=== PATIENT | male | born 1990 | race Caucasian/White ===

== ENCOUNTER 2020-01-16 22:50 | Emergency (ER) | payer SELFPAY ==
[2020-01-16 22:54] VITALS: BP 134/73; PULSE 95; RESP 22; TEMP 36.7; O2SAT 99; BMI 26.5
--- NOTE | 2020-01-16 22:54 | ED_ITS ---
Entered by Alexia Thomas, acting as scribe for Carla Segal Jan 16, 2020 22:50 HPI - SOB/Dyspnea General: Chief Complaint: Shortness of Breath/Dyspnea Stated Complaint: sob Time Seen by Provider: 01/16/20 22:53 Source: patient Mode of arrival: ambulatory Limitations: no limitations History of Present Illness: HPI Narrative: 29 yo m came to the er for short ness of breath, productive cough and tightness in chest. Onset was today. Pt states that he was seen in urgent care and was diagnosed with bronchitis and was given meds but was unable to get them due to how much they were. Pt states that he does have asthma and he does smoke. MD elicited complaint: shortness of breath and cough (productive ) Pertinent past history: asthma Onset (ago): day(s) (today) Timing: intermittent Severity: mild Exacerbating factors: coughing Relieving factors: nothing Known history of: asthma Associated symptoms: Reports cough; Deny abdominal pain, chest pain, diaphoresis, dizziness, extremity pain, fever(s), nausea, orthopnea, palpitations, polydipsia, syncope or vomiting Treatment prior to arrival: none Related Data: Home oxygen amount: none Review of Systems General: Reports: other (negative unless marked) Const: Denies: fever, chills, body aches, fatigue, malaise or diaphoresis Eyes: Denies: change in vision or blurry vision ENMT: Denies: throat pain, painful swallowing, hoarseness, ear pain, ear discharge, Change in hearing or nasal discharge Card: Denies: chest pain, palpitations, irregular heart rhythm, syncope, pre- syncope, shortness of breath on exertion or shortness of breath when lying down Resp: Reports: shortness of breath and productive cough GI: Denies: abdominal pain, nausea, vomiting, vomiting blood, coffee grounds in vomit, diarrhea, constipation, cramping, blood in stool or black tarry stool : Denies: flank pain, difficulty urinating, painful urination, urinary freq uency, urinary urgency, decreased urine ouput, urinary incontinence or blood in urine Musc: Denies: neck pain, back pain, extremity pain, extremity swelling, joint pain, joint swelling, joint warmth or joint stiffness Skin/Breast: Denies: rash, skin tenderness or yellow skin Neuro: Denies: headache, numbness in extremities, weakness in extremities, changes in sensation, lack of coordination, difficulty walking, dizziness, vertigo or confusion Endo: Denies: excessive thirst, tired all the time, cold intolerance, excessive sweating, flushing or hot flashes Eder/Lymph: Denies: easy bruising, easy bleeding, petechiae or enlarged lymph nodes All/Imm: Denies: hives, throat swelling, tongue swelling, facial swelling or acute wheezing PFSH ED PFSH: Social History Smoking and tobacco status: current every day smoker Alcohol intake: never Physical Exam Const: COMMON NORMALS: no apparent distress, oriented x3, no limitations, healthy appearing and well nourished EXAM LIMITATIONS: no altered mental status GENERAL APPEARANCE: cooperative, well kempt and well developed ORIENTATION/CONSCIOUSNESS: Yes awake HENMT: COMMON NORMALS: normocephalic, head/scalp atraumatic, hearing grossly normal bilaterally, external ears normal, EAC's normal, external nose normal and moist oral mucous membranes HEAD & SCALP: normal to inspection, normocephalic and atraumatic FACE & SINUS: normal facial exam and face symmetric NOSE: external nose normal and nares normal EXTERNAL EAR: Yes external ears normal EXTERNAL AUDITORY CANAL: EAC's normal MOUTH: oral and palatal mucosa normal and tongue normal Eye: COMMON NORMALS: PERRL, EOMs intact bilaterally, conjunctivae normal and no scleral icterus GENERAL EYE: normal appearance of both eyes and normal light reflex CONJUNCTIVA: Yes conjunctivae normal SCLERA: sclerae normal CORNEA: Yes corneas normal PUPIL: Yes PERRL DIRECT OPHTHALMOSCOPY: Yes normal light reflex Neck/C-Spine: COMMON NORMALS: full ROM, no lymphadenopathy, supple, no meningeal signs and no JVD GENERAL: Yes normal visual inspection and Yes trachea midline CERVICAL SPINE: Yes cervical ROM normal Chest: COMMONS NORMALS: inspection of chest normal and palpation of chest normal Resp: COMMON NORMALS: normal respiratory effort, no retractions, no use of accessory muscles and clear to auscultation bilaterally EFFORT & INSPECTION: Yes able to speak in complete sentences AUSCULTATION: clear to auscultation bilaterally and diminished lung sounds Cardio: COMMON NORMALS: no JVD, regular rate, regular rhythm, S1 normal heart sound, S2 normal heart sound, no gallops, no clicks, no murmurs and no rub JUGULAR VENOUS DISTENTION: no JVD RATE: regular rate RHYTHM: regular rhythm HEART SOUNDS: S1 normal and S2 normal GI: COMMON NORMALS: soft to palpation, non-tender, no hepatosplenomegaly and no masses INSPECTION: Yes normal to inspection PALPATION: Yes soft and Yes no hepatosplenomegaly : COMMON NORMALS: Yes no CVA tenderness BLADDER/KIDNEY EXAM: Yes no CVA tenderness Back/Pelvis: COMMON NORMALS: no CVA tenderness, thoracic and lumbar spine normal to inspection, no thoracic nor lumbar tenderness and thoraco-lumbar ROM normal Extremity: COMMON NORMALS: normal to inspection, full ROM, normal capillary refill, no joint enlargement, no clubbing, cyanosis or edema and no calf tenderness Neuro: COMMON NORMALS: oriented x3, CN's II-XII intact bilaterally, moves all extremities, no focal motor deficits and no sensory deficits noted MENINGEAL SIGNS: Yes no meningeal signs Psych: COMMON NORMALS: mental status grossly normal, thought process normal, cooperative, affect normal, speech normal and activity/motor behavior normal APPEARANCE: Yes well kempt SPEECH: Yes normal speech THOUGHT PROCESS: normal thought process Skin: COMMON NORMALS: no rashes or lesions noted, skin turgor normal, no jaundice, no petechiae and no mottling GENERAL SKIN EXAM: no rashes or lesions noted and turgor normal Course Vital Signs: Vital signs: Vital Signs Temperature 98.0 F 01/16/20 22:54 Pulse Rate 94 01/16/20 23:36 Respiratory Rate 16 01/16/20 23:36 Blood Pressure 128/71 01/16/20 23:36 Pulse Oximetry 97 01/16/20 23:36 MDM - SOB/Dyspnea MDM Narrative: Medical decision making narrative: The patient is feeling much better after his breathing treatment. He is feeling better and would like to go home. I will dispense home on albuterol inhaler with him and he is received a dose of steroids here. He agrees to return should his symptoms change or worsen. At this time I believe the patient have bronchitis with bronchospasm. He has a history of asthma but has albuterol, steroids and antibiotics prescribed to him earlier today by the urgent care. I will have him continue to take this. Imaging Data^: CXR: My impression: No acute cardiopulmonary findings. Discharge Plan Discharge Patient Disposition: Home, Self-Care Clinical Impression: Asthma with exacerbation Qualifiers: Asthma severity: mild Asthma persistence: intermittent Qualified Code(s): J45.21 - Mild intermittent asthma with (acute) exacerbation Condition: Stable Prescriptions: No Action No Known Home Medications RF: 0 Discharge Orders: Discharge Order (Routine); Ordered 01/16/20 Ordered By: Calra Segal Referrals: Lucero Jacques DO [Physician] - 1-3 days Discharge Diet: Advance as tolerated Discharge Activity: Increase activity as tolerated Patient Instructions: Acute Bronchitis (ED) Activity Restrictions/Additional Instructions: Please return to the ER immediately for any of the signs or symptoms listed on your discharge instruction sheets, worsening/changing of your symptoms, you are not getting better as quickly as expected, or for ANY other cause or concerns. Discharge Date/Time: 01/16/20 23:37 Coding Level of Care Code ED Network Support Technician for Chg Fwd Exam Comprehensive The documentation recorded by the William nicolas Stephanie Lyn, accurately reflects the service I personally performed and the decisions made by Luzma sun Eli N Jan 16, 2020 22:50
--- NOTE | 2020-01-16 22:56 | XR_ITS ---
WS: [id number] Portable AP upright chest, 01/16/2020 Clinical Data: cough Comparison: None. Findings: No nodules, masses or effusions are seen. The heart is normal. The pulmonary vascularity is not increased. No pneumonia or pneumothorax is seen. XR/XR chest 1V portable [id number] Impression: Negative chest.
[2020-01-16] MEDS: predniSONE 20 mg Tablet 60 MG PO (23:01)
[2020-01-16] MEDS: ipratropium-albuterol 3 mL Neb 9 ML INHALATION (23:21)
[2020-01-16 23:22] VITALS: PULSE 86; RESP 18; O2SAT 96
[2020-01-16 23:28] VITALS: PULSE 89; RESP 18; O2SAT 96
[2020-01-16 23:36] VITALS: BP 128/71; PULSE 94; RESP 16; O2SAT 97
== END 2020-01-16 23:37 | disposition home or self-care (01) ==
PROVIDERS: Emergency Provider Emergency Medicine
DX: J45.21 Mild intermittent asthma with (acute) exacerbation (principal); I10 Essential (primary) hypertension; F17.210 Nicotine dependence, cigarettes, uncomplicated
CPT/HCPCS: 71045; 94640; 99281; 99283; J3535; J7512

== ENCOUNTER 2020-02-14 00:54 | Emergency (ER) | payer SELFPAY ==
[2020-02-14 01:05] VITALS: BP 141/85; PULSE 93; RESP 16; TEMP 36.9; O2SAT 96; BMI 26.4
--- NOTE | 2020-02-14 01:11 | ED_ITS ---
Entered by Alexia Thomas, acting as scribe for Fran Rojas MD Feb 14, 2020 00:54 HPI - SOB/Dyspnea General: Chief Complaint: Shortness of Breath/Dyspnea Stated Complaint: sob Source: patient Mode of arrival: ambulatory Limitations: no limitations History of Present Illness: HPI Narrative: 29 yr old m came to the ED for shortness of breath. Feels like he needs an inhaler treatment. Pt says his shortness of breath started 1 hr before arrival. He states he does not have an inhaler. deneis any fevers. pt is in no distress. denies any worsening or improving factors. MD elicited complaint: shortness of breath (approx 1 hr ) and asthma attack Pertinent past history: asthma Onset (ago): hour(s) (stated it started 1 hr prior to arrival ) Severity: mild Exacerbating factors: nothing Relieving factors: nothing Associated symptoms: Reports no associated symptoms; Deny abdominal pain, chest pain, fever(s), nausea or vomiting Treatment prior to arrival: none Related Data: Home oxygen amount: none Review of Systems General: Reports: other (negative unless marked ) Const: Denies: fever, chills, body aches or change in appetite Eyes: Denies: blurry vision or eye discomfort ENMT: Denies: throat pain or dental pain Card: Denies: chest pain Resp: Reports: shortness of breath (pt has a history of asthma ) GI: Denies: abdominal pain, nausea, vomiting or diarrhea : Denies: painful urination Musc: Denies: neck pain or back pain Skin/Breast: Denies: rash Neuro: Denies: headache Psych: Denies: depression Eder/Lymph: Denies: easy bruising All/Imm: Denies: hives [facility] ED PFSH: Social History Smoking and tobacco status: current every day smoker Alcohol intake: never Physical Exam Const: COMMON NORMALS: no apparent distress, oriented x3 and healthy appearing HENMT: COMMON NORMALS: normocephalic and head/scalp atraumatic HEAD & SCALP: normocephalic and atraumatic Eye: COMMON NORMALS: PERRL and EOMs intact bilaterally PUPIL: Yes PERRL Neck/C-Spine: COMMON NORMALS: full ROM and supple Chest: COMMONS NORMALS: inspection of chest normal and palpation of chest normal Resp: COMMON NORMALS: normal respiratory effort, no retractions, no use of accessory muscles and clear to auscultation bilaterally AUSCULTATION: clear to auscultation bilaterally Cardio: COMMON NORMALS: regular rate, regular rhythm and no murmurs RATE: regular rate RHYTHM: regular rhythm GI: COMMON NORMALS: normal to inspection, nondistended, normoactive bowel sounds, soft to palpation, non-tender and no masses PALPATION: Yes soft Extremity: COMMON NORMALS: normal to inspection and full ROM Neuro: COMMON NORMALS: oriented x3, moves all extremities and no focal motor deficits Psych: COMMON NORMALS: mental status grossly normal, thought process normal and cooperative THOUGHT PROCESS: normal thought process Skin: COMMON NORMALS: no rashes or lesions noted and no wounds GENERAL SKIN EXAM: no rashes or lesions noted Course Vital Signs: Vital signs: Vital Signs Temperature 98.4 F 02/14/20 01:05 Pulse Rate 88 02/14/20 01:39 Respiratory Rate 18 02/14/20 01:34 Blood Pressure 141/85 02/14/20 01:05 Pulse Oximetry 97 02/14/20 01:39 MDM - SOB/Dyspnea MDM Narrative: Medical decision making narrative: Patient presents here with asthma and does not have inhaler at this time. Patient is in minimal distress here and feels improved after breathing treatment. Patient given Decadron as well. Will prescribe albuterol inhaler for home and patient is stable for discharge at this time. Discharge Plan Discharge Patient Disposition: Home, Self-Care Clinical Impression: Asthma with exacerbation Qualifiers: Asthma severity: mild Asthma persistence: unspecified Qualified Code(s): J45.901 - Unspecified asthma with (acute) exacerbation Condition: Stable Prescriptions: New albuterol sulfate 90 mcg/actuation HFA aerosol inhaler 2 inh INHALATION Q6H PRN (Reason: shortness of breath or wheezing) Qty: 8 RF: 0 Discharge Orders: Discharge Order (Routine); Ordered 02/14/20 Ordered By: Fran Rojas Discharge Diet: Advance as tolerated Discharge Activity: Resume usual activity Patient Instructions: Asthma (ED) Coding Level of Care Code ED Lining Baster for g Fwd Exam Comprehensive The documentation recorded by the William nicolas Stephanie Lyn, accurately reflects the service I personally performed and the decisions made by me, Fran Rojas MD Feb 14, 2020 00:54
[2020-02-14] MEDS: dexamethasone 10 mg/mL INJ IM (01:20)
[2020-02-14 01:34] VITALS: PULSE 89; RESP 18; O2SAT 96
[2020-02-14] MEDS: ipratropium-albuterol 3 mL Neb INHALATION (01:34)
[2020-02-14 01:39] VITALS: PULSE 88; O2SAT 97
== END 2020-02-14 01:24 | disposition home or self-care (01) ==
PROVIDERS: Emergency Provider Emergency Medicine
DX: J45.901 Unspecified asthma with (acute) exacerbation (principal); F17.200 Nicotine dependence, unspecified, uncomplicated
CPT/HCPCS: 12345; 94640; 96372; 99281; 99283; J1100

== ENCOUNTER 2020-02-19 18:49 | Emergency (ER) | payer SELFPAY ==
[2020-02-19 18:54] VITALS: BP 142/91; PULSE 77; RESP 18; TEMP 37.1; O2SAT 98; BMI 27.3
--- NOTE | 2020-02-19 19:10 | W.ED.GENADLT ---
HPI - General Adult General: Chief complaint: General Medical Stated complaint: Left arm/hand pain Time Seen by Provider: 02/19/20 19:02 History of Present Illness: HPI narrative: Patient has left hand pain that is had for year and a half he is out of his Neurontin does not have money to get it comes here today because he sent by urgent care instead to come here to get medication filled. Desiring 600 Neurontin. complaint: Left hand pain Onset (ago): year(s) Location: left and upper extremity Severity scale (1-10): 7 Quality: aching Pain Consistency: constant Associated symptoms: Reports no associated symptoms; Deny chest pain, dyspnea, headache(s), nausea, rash or vomiting Review of Systems Const: Denies: fever, chills or body aches Eyes: Denies: change in vision or blurry vision ENMT: Denies: throat pain or nasal congestion Card: Denies: chest pain or shortness of breath on exertion Resp: Denies: shortness of breath, productive cough or non-productive cough GI: Denies: abdominal pain, nausea or vomiting : Denies: difficulty urinating Musc: Denies: extremity pain Skin/Breast: Denies: rash Neuro: Reports: other (Left hand pain between the thumb and forefinger.); Denies: headache Psych: Denies: anxiety or depression Eder/Lymph: Denies: easy bruising PFSH ED PFSH: Social History Smoking and tobacco status: current every day smoker Alcohol intake: never Physical Exam Const: COMMON NORMALS: no apparent distress, average body habitus and oriented x3 HENMT: COMMON NORMALS: normocephalic HEAD & SCALP: normal to inspection and normocephalic FACE & SINUS: normal facial exam Eye: COMMON NORMALS: conjunctivae normal GENERAL EYE: normal appearance of both eyes CONJUNCTIVA: Yes conjunctivae normal Neck/C-Spine: COMMON NORMALS: no JVD Chest: COMMONS NORMALS: inspection of chest normal Resp: COMMON NORMALS: normal respiratory effort and clear to auscultation bilaterally AUSCULTATION: clear to auscultation bilaterally Cardio: COMMON NORMALS: no JVD, regular rate and regular rhythm RATE: regular rate RHYTHM: regular rhythm GI: COMMON NORMALS: normal to inspection, nondistended, normoactive bowel sounds Extremity: COMMON NORMALS: normal to inspection and full ROM LEFT UPPER EXTREMITY: Yes hand & digits (Left hand appears normal.) Neuro: COMMON NORMALS: oriented x3 Course Vital Signs: Vital signs: Vital Signs Temperature 98.7 F 02/19/20 18:54 Pulse Rate 77 02/19/20 18:54 Respiratory Rate 18 02/19/20 18:54 Blood Pressure 142/91 02/19/20 18:54 Pulse Oximetry 98 02/19/20 18:54 Discharge Plan Discharge Prescriptions: No Action albuterol sulfate 90 mcg/actuation HFA aerosol inhaler 2 inh INHALATION Q6H PRN (Reason: shortness of breath or wheezing) Qty: 8 RF: 0 Coding Level of Care Code ED Hadoop Administrator for Chg Tejas
[2020-02-19] MEDS: gabapentin 300 mg Capsule 600 MG PO (19:16)
[2020-02-19 19:40] VITALS: BP 124/87; PULSE 80; RESP 16; O2SAT 97
== END 2020-02-19 19:41 | disposition home or self-care (01) ==
PROVIDERS: Emergency Provider Nurse Practitioner Family
DX: M79.642 Pain in left hand (principal); F17.200 Nicotine dependence, unspecified, uncomplicated
CPT/HCPCS: 12345; 99281; 99283

== ENCOUNTER 2020-05-22 16:09 | Emergency (ER) | payer SELFPAY ==
[2020-05-22 16:19] VITALS: BP 136/78; PULSE 86; RESP 15; TEMP 36.9; O2SAT 95; BMI 28.7
== END 2020-05-22 17:31 | disposition left against medical advice (07) ==
PROVIDERS: Emergency Provider Family Medicine
DX: Z53.21 Procedure and treatment not carried out due to patient leaving prior to being seen by health care provider (principal)
CPT/HCPCS: 99281

== ENCOUNTER 2020-05-31 18:37 | Emergency (ER) | payer SELFPAY ==
[2020-05-31 18:41] VITALS: BP 120/76; PULSE 105; RESP 14; TEMP 36.9; O2SAT 96; BMI 30.2
--- NOTE | 2020-05-31 19:35 | XRR_ITS ---
PROCEDURE INFORMATION: Exam: XR Chest, 2 Views Exam date and time: 05/31/2020 8:13 PM Age: 29 years old Clinical indication: Dyspnea TECHNIQUE: Imaging protocol: XR of the chest Views: 2 views. COMPARISON: CR XR chest 1V portable [id number] 01/16/2020 11:03 PM FINDINGS: Lungs: Unremarkable. No consolidation. Pleural space: Unremarkable. No pleural effusion. No pneumothorax. Heart/Mediastinum: Unremarkable. No cardiomegaly. Bones/joints: Unremarkable. XR/XR chest 2V* [id number] IMPRESSION: No acute findings.
--- NOTE | 2020-05-31 20:08 | W.ED.SOB ---
HPI - SOB/Dyspnea General: Chief Complaint: Shortness of Breath/Dyspnea Stated Complaint: sob Time Seen by Provider: 05/31/20 20:04 History of Present Illness: HPI Narrative: Patient is a 29-year-old male who comes to the ED with shortness of breath and wheezing. Patient has a past medical history of asthma and has been out of his albuterol inhaler for approximately 6 days. Patient says wheezing and symptoms started about a week ago. He would like to get a refill on his albuterol inhaler. Denies fever, cough, chest pain, nausea/vomiting, bladder or bowel symptoms. Associated symptoms: Deny abdominal pain, chest pain, fever(s), nausea, orthopnea, palpitations or vomiting Review of Systems Const: Denies: fever(s), chills or fatigue Eyes: Denies: change in vision or eye discomfort ENMT: Denies: throat pain, odynophagia, nasal discharge or nasal congestion Card: Denies: chest pain, palpitations, edema, swelling of feet/ankles, dyspnea on exertion or orthopnea Resp: Reports: dyspnea; Denies: productive cough or non-productive cough GI: Denies: abdominal pain, nausea, vomiting, diarrhea, constipation or hematochezia : Denies: flank pain, difficulty urinating, dysuria or hematuria Musc: Denies: neck pain, back pain or extremity swelling Skin/Breast: Denies: rash or new lesions Neuro: Denies: headache(s), numbness in extremities or weakness in extremities PFSH ED PFSH: Social History Smoking and tobacco status: current every day smoker Alcohol intake: never Physical Exam Const: COMMON NORMALS: patient oriented x3, healthy appearing and alert GENERAL APPEARANCE: cooperative and comfortable HENMT: COMMON NORMALS: normocephalic HEAD & SCALP: normocephalic MOUTH: Normal oral and palatal mucosa present THROAT: posterior oropharynx normal and uvula midline Eye: COMMON NORMALS: Equal, round and reactive pupils present PUPIL: Yes Equal, round and reactive pupils present Neck/C-Spine: COMMON NORMALS: supple GENERAL: Yes normal visual inspection Resp: COMMON NORMALS: normal respiratory effort, No retractions and No use of accessory muscles AUSCULTATION: wheezes expiratory wheezes (Throughout the lungs bilaterally.) Cardio: COMMON NORMALS: regular rate, regular rhythm, S1 normal heart sound present, S2 normal heart sound present, No gallops present (Cardio), No clicks present (Cardio), No murmurs present (Cardio) and Peripheral pulses 2+ throughout RATE: regular rate RHYTHM: regular rhythm HEART SOUNDS: S1 normal heart sound present and S2 normal heart sound present PERIPHERAL PULSES: Peripheral pulses 2+ throughout GI: COMMON NORMALS: Normal to inspection, nondistended, normoactive bowel sounds present, Soft to palpation, non-tender and no masses PALPATION: Yes Soft to palpation : COMMON NORMALS: Yes no CVA tenderness BLADDER/KIDNEY EXAM: Yes no CVA tenderness Back/Pelvis: COMMON NORMALS: no CVA tenderness Extremity: COMMON NORMALS: normal to inspection and no pedal edema Neuro: COMMON NORMALS: patient oriented x3 and moves all extremities SENSORIUM/ORIENTATION: Yes alert Skin: COMMON NORMALS: no rashes or lesions noted GENERAL SKIN EXAM: no rashes or lesions noted and dry skin Course Reevaluation(s): Reevaluation #1: After patient received DuoNeb treatment I listen to the lungs again and no wheezing upon auscultation. Patient stated he felt better to and was able to breathe better. Vital Signs: Vital signs: Vital Signs Temperature 98.4 F 05/31/20 18:41 Pulse Rate 67 05/31/20 21:28 Respiratory Rate 16 05/31/20 21:33 Blood Pressure 120/76 05/31/20 18:41 Pulse Oximetry 98 05/31/20 21:28 MDM - SOB/Dyspnea MDM Narrative: Medical decision making narrative: Patient is a 29-year-old male who comes to the ED with shortness of breath and wheezing. He has a past medical history of asthma. He started having shortness of breath and wheezing approximately a week ago but ran out of his albuterol inhaler. He came to the ED to get a breathing treatment and new prescription for an albuterol inhaler. Expiratory wheezing heard upon auscultation of lungs. Chest x-ray was performed showed no acute findings. Patient was given a dose of Solu-Medrol IM and a DuoNeb breathing treatment. Wheezing improved and he was discharged with a prescription for albuterol inhaler. Patient will follow-up with primary care doctor in 7 to 10 days for reevaluation. He can return to ED for any worsening symptoms. Patient understood and agreed with plan. Imaging Data^: CXR: Attestation: I personally reviewed and interpreted this imaging study as follows: My impression: No acute findings in chest. Pending final radiology report. Discharge Plan Discharge Patient Disposition: Home, Self-Care Clinical Impression: Asthma exacerbation, mild Condition: Stable Prescriptions: New albuterol sulfate 90 mcg/actuation HFA aerosol inhaler 2 inh INHALATION Q6H PRN (Reason: shortness of breath or wheezing) Qty: 8.5 RF: 0 No Action albuterol sulfate 90 mcg/actuation HFA aerosol inhaler 2 inh INHALATION Q6H PRN (Reason: shortness of breath or wheezing) Qty: 8 RF: 0 Discharge Orders: Discharge Order (Routine); Ordered 05/31/20 Ordered By: Dakotah Laguerre Discharge Diet: Regular Discharge Activity: Resume usual activity Patient Instructions: Asthma - Adult Activity Restrictions/Additional Instructions: Follow-up with medical provider as directed in 7-10 days. Take medications as prescribed. Return to the ER or your medical provider if condition worsens. Please read and understand discharge instructions. If any questions, please ask. Discharge Date/Time: 05/31/20 21:34 Coding Level of Care Code ED Data Analytics Chief Scientist for Kieran Fwd Exam Comprehensive
[2020-05-31] MEDS: ipratropium-albuterol 3 mL Neb INHALATION (21:27)
[2020-05-31 21:28] VITALS: PULSE 67; RESP 16; O2SAT 98
[2020-05-31 21:33] VITALS: RESP 16
== END 2020-05-31 21:34 | disposition home or self-care (01) ==
PROVIDERS: Emergency Provider Physician Assistant
DX: J45.901 Unspecified asthma with (acute) exacerbation (principal); F17.210 Nicotine dependence, cigarettes, uncomplicated
CPT/HCPCS: 12345; 71046; 94640; 99281; 99283; J2930

== ENCOUNTER → 2020-06-26 10:16 | Outpatient (BNVA) | payer SELFPAY | PROVIDERS: Visit Provider Emergency Medicine | DX: M79.646 Pain in unspecified finger(s) (principal) | CPT/HCPCS: 73130 ==

== ENCOUNTER 2023-05-27 11:55 | Emergency (ER) | payer SELFPAY ==
[2023-05-27 12:04] VITALS: BP 136/86; PULSE 85; RESP 18; TEMP 36.7; O2SAT 97; BMI 29.2
--- NOTE | 2023-05-27 12:35 | ED_ITS ---
HPI - Dental/Oral General: Chief complaint: Dental/Oral Stated complaint: dental pain Time Seen by Provider: 05/27/23 12:18 Source: patient Mode of arrival: ambulatory Limitations: no limitations History of Present Illness: Patient is a 32-year-old male who presents to ED today with complaint of pain s urrounding a left lower molar. Patient states he has had discomfort in the tooth for several days but states yesterday he began noticing some mild swelling to the left side of his face. He has not sought any form of dental evaluation. Been trying [id number] Tylenol without relief. He is not having any trouble speaking, swallowing, controlling saliva. No fevers. MD Complaint: tooth pain Teeth map: 1. Onset (ago): day(s) Duration: constant Severity: severe Relieving factors: nothing Exacerbating factors: nothing Context: poor dental care Associated symptoms: Reports ear or mastoid pain; Denies fever(s) Treatment prior to arrival: oral analgesic Review of Systems Const: Denies: fever(s), chills, body aches, fatigue or malaise ENMT: Reports: dental pain and ear or mastoid pain; Denies: ear discharge, change in hearing, tinnitus or disequilibrium Card: Denies: chest pain Resp: Denies: dyspnea GI: Denies: nausea or vomiting Musc: Denies: neck pain Neuro: Denies: headache(s) PFS ED PFSH: Social History Smoking and tobacco status: current every day smoker Alcohol intake: never Substance/Drug Use: never Physical Exam Const: COMMON NORMALS: no acute distress, average body habitus, patient oriented x3, no limitations, healthy appearing, alert and well nourished HENMT: COMMON NORMALS: normocephalic, atraumatic, hearing grossly normal bilaterally, external ears normal, EAC's normal and TM's normal bilaterally HEAD & SCALP: normal to inspection, normocephalic and atraumatic FACE & SINUS: normal facial exam and sinuses nontender; no edema EXTERNAL EAR: Yes external ears normal EXTERNAL AUDITORY CANAL: EAC's normal TYMPANIC MEMBRANE: TM's normal bilaterally MOUTH: Normal oral and palatal mucosa present, lip normal, tongue normal and other (floor of mouth is soft/non-elevated) TEETH & GINGIVA IMAGES: 1. cracked/fractured L lower molar; some mild surrounding inflammation/no abscess THROAT: posterior oropharynx normal, tonsils normal and uvula midline Eye: GENERAL EYE: appearance normal, both eyes and all related structures Neck/C-Spine: COMMON NORMALS: full ROM and no lymphadenopathy GENERAL: Yes normal visual inspection, No anterior neck swelling and No submandibular swelling Resp: COMMON NORMALS: normal respiratory effort Cardio: COMMON NORMALS: regular rate and regular rhythm RATE: regular rate RHYTHM: regular rhythm Neuro: COMMON NORMALS: patient oriented x3 and CN's II-XII intact bilaterally SENSORIUM/ORIENTATION: Yes alert Course Vital Signs: Vital signs: Vital Signs Temperature 98.0 F 05/27/23 12:04 Pulse Rate 85 05/27/23 12:49 Respiratory Rate 18 05/27/23 12:49 Blood Pressure 136/86 05/27/23 12:49 Pulse Oximetry 97 05/27/23 12:49 Oxygen Delivery Me thod Room Air 05/27/23 12:04 MDM - Dental/Oral Medical Decision Making Patient will be placed on antibiotics and given a small amount of pain medications. Dental resources given to patient. Recommend prompt dental follow-up. Return ED precautions given. Discharge Plan Discharge Patient Disposition: Home Clinical Impression: Toothache, Fracture of tooth Condition: Stable Prescriptions: New penicillin V potassium 500 mg tablet 500 mg PO Q8H 7 Days Qty: 21 0RF tramadol 50 mg tablet 50 mg PO Q6H PRN (Reason: pain) Qty: 10 0RF No Action albuterol sulfate 90 mcg/actuation HFA aerosol inhaler 2 inh INHALATION Q6H PRN (Reason: shortness of breath or wheezing) Qty: 8.5 0RF Discharge Orders: Discharge ED (Routine); Ordered 05/27/23 Ordered By: Marta Becerra Patient Instructions: Toothache (ED) Coding Level of Care Code ED Dynamite Packing Machine Feeder for Kieran Lazaro
[2023-05-27 12:49] VITALS: BP 136/86; PULSE 85; RESP 18; O2SAT 97
== END 2023-05-27 12:50 | disposition home or self-care (01) ==
PROVIDERS: Emergency Provider Physician Assistant
DX: S02.5XXA Fracture of tooth (traumatic), initial encounter for closed fracture (principal); X58.XXXA Exposure to other specified factors, initial encounter; F17.210 Nicotine dependence, cigarettes, uncomplicated
CPT/HCPCS: 99283

== ENCOUNTER 2023-07-25 01:03 | Emergency (ER) | payer SELFPAY ==
[2023-07-25 01:15] VITALS: BP 116/88; PULSE 97; RESP 18; TEMP 36.2; O2SAT 100; BMI 27.8
[2023-07-25 01:20] VITALS: BP 116/88; PULSE 97; RESP 20; O2SAT 96
--- NOTE | 2023-07-25 01:38 | W.ED.DENTAL ---
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 Onset of symptoms approximately 1 month ago. Was seen here in the emergency department and discharged on penicillin and tramadol. Patient states he was unable to fill the prescription Patient has not followed up with a dentist due to finances. Patient has not established primary care due to finances. Patient has swelling to right cheek, lower jaw Patient denies routine medical history. Did have a history of asthma possibly and has an albuterol inhaler. Patient does use tobacco products daily. Associated symptoms: Denies ear or mastoid pain, fever(s) or odynophagia Review of Systems General: Reports: 10 or more systems reviewed and unremarkable except in HPI and below Const: Denies: fever(s), chills, change in appetite, change in weight, fatigue or malaise Eyes: Denies: change in vision, eye discomfort, eye discharge or eye redness ENMT: Denies: throat pain, enlarged tonsils, odynophagia, hoarseness, ear or mastoid pain, ear discharge, change in hearing, tinnitus, nasal discharge, nasal congestion, post nasal drip or sinus pain Card: Denies: chest pain, palpitations, irregular heart rhythm, edema, dyspnea on exertion, orthopnea or leg pain with exertion Resp: Denies: dyspnea, productive cough, non-productive cough, wheezing, stridor or chest congestion GI: Denies: abdominal pain, nausea, vomiting, dysphagia, diarrhea, constipation, bloating, GI cramping or hematochezia : Denies: flank pain, dysuria, urinary frequency, urinary urgency, urinary hesitancy, oliguria or hematuria Musc: Denies: neck pain, back pain, extremity pain, joint pain, joint swelling, joint redness, joint warmth or muscle weakness Skin/Breast: Denies: rash, pruritus, erythema, photosensitivity or new lesions Neuro: Denies: headache(s), numbness in extremities, weakness in extremities, sensory changes, lack of coordination, difficulty walking, frequent falls, dizziness, confusion, Slurred speech present, difficulty communicating thoughts, seizure-like activity or involuntary movements Endo: Denies: polyuria, polydipsia or tired all the time Eder/Lymph: Denies: easy bruising or easy bleeding PFSH ED PFSH: Social History Smoking and tobacco status: current every day smoker Alcohol intake: never Substance/Drug Use: never Physical Exam Const: COMMON NORMALS: no acute distress, patient oriented x3 and alert GENERAL APPEARANCE: cooperative ORIENTATION/CONSCIOUSNESS: Yes awake, Yes oriented to person, Yes oriented to place and Yes oriented to time HENMT: COMMON NORMALS: normocephalic and atraumatic HEAD & SCALP: normocephalic and atraumatic FACE & SINUS: normal facial exam MOUTH: Normal oral and palatal mucosa present THROAT: posterior oropharynx normal Eye: COMMON NORMALS: Equal, round and reactive pupils present, EOMs intact bilaterally, conjunctivae normal and no scleral icterus GENERAL EYE: appearance normal, both eyes and all related structures ALIGNMENT: Yes alignment normal PERIORBITAL: periorbital findings normal CONJUNCTIVA: Yes conjunctivae normal PUPIL: Yes Equal, round and reactive pupils present Neck/C-Spine: COMMON NORMALS: full ROM GENERAL: Yes normal visual inspection Lymph: LYMPHATIC: no lymphadenopathy noted Extremity: COMMON NORMALS: normal to inspection GENERAL: Yes normal exam except as noted Neuro: COMMON NORMALS: patient oriented x3 SENSORIUM/ORIENTATION: Yes alert, Yes oriented to person, Yes oriented to place and Yes oriented to time CRANIAL NERVES: Yes CN normal except as noted Psych: COMMON NORMALS: mental status grossly normal, Normal thought process present, cooperative, activity/motor behavior normal, denies homicidal ideation and denies suicidal ideation THOUGHT PROCESS: Normal thought process present Skin: COMMON NORMALS: no rashes or lesions noted, no wounds and turgor normal GENERAL SKIN EXAM: no rashes or lesions noted and turgor normal Course Vital Signs: Vital signs: Vital Signs Temperature 97.1 F L 07/25/23 01:15 Pulse Rate 97 07/25/23 01:20 Respiratory Rate 20 H 07/25/23 01:20 Blood Pressure 116/88 07/25/23 01:20 Pulse Oximetry 96 07/25/23 01:20 Oxygen Delivery Me thod Room Air 07/25/23 01:20 MDM - Dental/Oral Medical Decision Making Patient was treated here in the emergency department for dental abscess. There appears to be a drainable abscess however patient does not desire I&D. Patient is going to be treated with penicillin VK here as well as Toradol 60 mg IM. Patient needs to download [facility] to get his prescriptions at a discounted rate. I checked on [facility] and he could pay as low as $5.22 for the prescription Discharge Plan Discharge Patient Disposition: Home Clinical Impression: Dental caries, Dental abscess Condition: Stable Prescriptions: New penicillin V potassium 500 mg tablet 500 mg PO QID 10 Days Qty: 40 0RF No Action albuterol sulfate 90 mcg/actuation HFA aerosol inhaler 2 inh INHALATION Q6H PRN (Reason: shortness of breath or wheezing) Qty: 8.5 0RF tramadol 50 mg tablet 50 mg PO Q6H PRN (Reason: pain) Qty: 10 0RF Discharge Orders: Discharge ED (Routine); Ordered 07/25/23 Ordered By: Joann Pineda Discharge Diet: Advance as tolerated Discharge Activity: Resume usual activity Patient Instructions: Dental Caries (Cavities), Dental Abscess (ED), Pain Management Activity Restrictions/Additional Instructions: Need to go to [facility] We will sign up for discounted medication/prescription rates. This can be used for your , your children, and costs you nothing. Take your antibiotic as prescribed Quit using tobacco products Follow-up with a dentist Coding Level of Care Code ED First Press 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
[2023-07-25] MEDS: ketorolac 10 mg Tablet PO (01:50)
[2023-07-25] MEDS: penicillin v potassium 250 mg Tablet 500 MG PO (01:51)
== END 2023-07-25 02:04 | disposition home or self-care (01) ==
PROVIDERS: Emergency Provider Nurse Practitioner
DX: K02.9 Dental caries, unspecified (principal); K04.7 Periapical abscess without sinus; F17.210 Nicotine dependence, cigarettes, uncomplicated
CPT/HCPCS: 99283

== ENCOUNTER 2024-02-10 22:27 | Inpatient (IN) | payer SELFPAY ==
[2024-02-10 22:32] VITALS: BP 131/77; PULSE 96; RESP 18; TEMP 36.6; O2SAT 98; BMI 31.5
--- NOTE | 2024-02-10 22:50 | ECG_ITS ---
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 Measurements Intervals [place] Rate: 92 P: 38 [place]: 151 QRS: 68 QRSD: 110 T: 22 QT: 369 QTc: 456 Interpretive Statements SINUS RHYTHM No previous ECG available for comparison Electronically Signed On 02-11-2024 7:52:08 CDT by Clay Boyce M.D. [email or web address]
[2024-02-10 23:17] LABS: Basophils % 0.5 %; Eosinophils # 0.2 10^3/uL (0.0-0.8); Eosinophils % 2.4 %; Hematocrit 47.5 % (37-53); Lymphocytes # 3.2 10^3/uL (0.8-4.8); Mean Corpuscular HGB Conc 33.1 g/dL (30-55); Mean Corpuscular Hemoglobin 31.4 pg (27-33); Mean Platelet Volume 10.9 fL (7.4-10.4); Monocytes # 0.8 10^3/uL (0.2-0.9); Monocytes % 10.6 %; Neutrophils # 3.21 10^3/uL (1.8-7.7); Nucleated Red Blood Cells % 0 %; Platelet Count 230 10^3/cmm (157-399); Red Cell Distribution Width 15.4 % (12.1-15.1); White Blood Count 7.47 10^3/uL (3.29-11.43)
[2024-02-10 23:25] LABS: Add Urine Microscopic? NO; Charge for UA Resulting for Rev
[2024-02-10 23:28] LABS: Bilirubin Urine Neg (Negative); Blood Urine Neg (Negative); Glucose Urine UA Norm (Normal); Ketones Urine Negative (Negative); Leukocyte Esterase Urine Negative (Negative); Nitrate Urine Negative (Negative); Protein Urine Neg (Negative); Specific Gravity, Urine 1.005 (1.005-1.030); Urine Appearance Clear (CLEAR); Urine Color Light yellow (Yellow); Urobilinogen Urine Neg (Negative); pH Urine 6 (5-7)
[2024-02-10 23:35] LABS: Amphetamines Screen Urine Negative (Negative); Barbiturates Screen Urine Negative (Negative); Benzodiazepines Screen Urine Negative (Negative); Cocaine Screen Urine Negative (Negative); Opiate Screen Urine Negative (Negative); PCP Screen Urine Negative (Negative); THC Screen Urine Negative (Negative)
[2024-02-10 23:36] LABS: Alanine Aminotransferase 145 U/L (0-41); Albumin Level 4.2 g/dL (3.5-5.2); Alcohol Level 264 mg/dL (0-10); Alkaline Phosphatase 148 U/L (40-130); Aspartate Amino Transferase 220 U/L (0-40); Blood Urea Nitrogen 4 mg/dL (6-20); Calcium 9.3 mg/dL (8.5-10.5); Carbon Dioxide 26 mmol/L (22-29); Chloride 101 mmol/L (98-107); Creatinine Clr Calc Pharmacy 158.4209; Globulin 3.9 g/dL (1.3-4.6); Glomerular Filtration Rate 112.8 mL/min (90-130); Glucose 113 mg/dL (65-115); Osmolality Calculated 290 mOsm/kg (285-295); Sodium 141 mmol/L (136-145); Total Bilirubin 0.5 mg/dL (0.15-1.2); Total Protein 8.1 g/dL (6.6-8.7)
[2024-02-10 23:39] LABS: Acetaminophen < 5.0 ug/mL (10-30); Salicylate < 0.3 mg/dL (3-10)
--- NOTE | 2024-02-11 01:38 | ED.C_ITS ---
HPI - Psych 2 General: Chief Complaint: Psychiatric Symptoms Stated Complaint: MHE, depression Time Seen by Provider: 02/10/24 22:42 History of Present Illness: 33-year-old male presents emergency depa rtment with statements that he feels like he is having suicidal thoughts. He states he has been depressed for a very long time. He states that he has previously been in longterm and was released 3 years ago and since that time he has been depressed as he states that his mother and grandmother have both recently . He states he drank approximately 8-10 beers tonight because of his depression. He states he is had suicidal thoughts for the previous 1 year but they became much more prominent this evening although he states he does not have a plan to act on his suicidal ideation. Associated symptoms: Reports depression and suicidal ideation; Deny auditory hallucinations or homicidal ideation Review of Systems 2 General: Reports: 10 or more systems reviewed and unremarkable except in HPI and below Psych: Reports: anxiety, depression, hopelessness, loss of interest and suicidal ideation; Denies: auditory hallucinations, tactile hallucinations or homicidal ideation [facility] ED 2 PFSH: Social History Smoking and tobacco/nicotine status: current every day tobacco/nicotine user Alcohol intake: never Substance/Drug Use: never Physical Exam 2 Narrative: EXAM NARRATIVE: Constitutional: the patient appears well nourished and of normal development. Vital signs as documented. No acute distress at present. Alert and oriented-to person, place, time and situation. Head, eyes, ears, nose, mouth, throat: Normocephalic, atraumatic. Pupils-equal, round, reactive to light. No scleral icterus. Normal-appearing external ears. Normal appearing nasal turbinates, no drainage. No obvious oral lesions, posterior oropharynx without erythema or exudates. Neck: Supple, trachea is midline, no lymphadenopathy, no jugular venous distension, thyromegaly, or carotid bruits. Carotid upstrokes are brisk bilaterally. Lungs: clear to auscultation to all lung miller. Symmetrical rise and fall of chest, no obvious signs of increased work of breathing at present. Cardiac: Regular rate and rhythm, positive S1, S2. No murmurs, rubs or gallops that I can appreciate Abdomen: Soft, non-tender to palpation, normal active bowel sounds to all quadrants. No palpable masses, no organomegaly and abdominal bruits. Extremities: 2+ pulses in the upper extremities that are equal bilaterally, 2+ pulses in the lower extremities that are equal bilaterally. Non-edematous. Moves all extremities well, sensation to all extremities are noted. Skin: Warm, dry, intact. Psych: Depressed, tearful, withdrawal, poor eye contact. Course 2 Vital Signs: Vital signs: Vital Signs Temperature 97.9 F 02/10/24 22:32 Pulse Rate 96 02/10/24 22:32 Respiratory Rate 18 02/10/24 22:32 Blood Pressure 131/77 02/10/24 22:32 Pulse Oximetry 98 02/10/24 22:32 Oxygen Delivery Me thod Room Air 02/10/24 22:32 MDM - Psych Medical Decision Making Physical exam completed I will obtain laboratory evaluation for psychiatric medical clearance and also twelve-lead EKG. I have contacted Dr. Sears and requested admission and he is excepted the patient to the neuropsychiatric unit. Medical Records I reviewed the patient's medical records. Lab Data I reviewed the patient's lab results. 02/10/24 23:08 02/10/24 23:08 Laboratory Results WBC 7.47 10^3/uL (3.29-11.43) 02/10/24 23:08 RBC 5.00 10^6/uL (3.85-5.65) 02/10/24 23:08 Hgb 15.70 g/dL (11.27-16.99) 02/10/24 23:08 Hct 47.5 % (37-53) 02/10/24 23:08 MCV 95.0 fl (82-101) 02/10/24 23:08 MCH 31.4 pg (27-33) 02/10/24 23:08 MCHC 33.1 g/dL (30-55) 02/10/24 23:08 RDW 15.4 % (12.1-15.1) H 02/10/24 23:08 Plt Count 230 10^3/cmm (157-399) 02/10/24 23:08 MPV 10.9 fL (7.4-10.4) H 02/10/24 23:08 Neut % (Auto) 43.0 % 02/10/24 23:08 Lymph % (Auto) 43.0 % 02/10/24 23:08 [place] % (Auto) 10.6 % 02/10/24 23:08 Eos % (Auto) 2.4 % 02/10/24 23:08 Baso % (Auto) 0.5 % 02/10/24 23:08 Neut # (Auto) 3.21 10^3/uL (1.8-7.7) 02/10/24 23:08 Lymph # (Auto) 3.2 10^3/uL (0.8-4.8) 02/10/24 23:08 [place] # (Auto) 0.8 10^3/uL (0.2-0.9) 02/10/24 23:08 Eos # (Auto) 0.2 10^3/uL (0.0-0.8) 02/10/24 23:08 Baso # (Auto) 0.0 10^3/uL (0.0-0.1) 02/10/24 23:08 Nucleated RBC % (auto) 0 % 02/10/24 23:08 Nucleated RBCs # 0.0 /100WBC 02/10/24 23:08 Sodium 141 mmol/L (136-145) 02/10/24 23:08 Potassium 4.0 mmol/L (3.5-5.1) 02/10/24 23:08 Chloride 101 mmol/L (98-107) 02/10/24 23:08 Carbon Dioxide 26 mmol/L (22-29) 02/10/24 23:08 Anion Gap 18.0 (5-19) 02/10/24 23:08 BUN 4 mg/dL (6-20) L 02/10/24 23:08 Creatinine 0.8 mg/dL (0.7-1.2) 02/10/24 23:08 GFR Calculation 112.8 mL/min (90-130) 02/10/24 23:08 Glucose 113 mg/dL (65-115) 02/10/24 23:08 Calculated Osmolality 290 mOsm/kg (285-295) 02/10/24 23:08 Calcium 9.3 mg/dL (8.5-10.5) 02/10/24 23:08 Total Bilirubin 0.5 mg/dL (0.15-1.2) 02/10/24 23:08 AST 220 U/L (0-40) H 02/10/24 23:08 ALT 145 U/L (0-41) H 02/10/24 23:08 Alkaline Phosphatase 148 U/L (40-130) H 02/10/24 23:08 Total Protein 8.1 g/dL (6.6-8.7) 02/10/24 23:08 Albumin 4.2 g/dL (3.5-5.2) 02/10/24 23:08 Globulin 3.9 g/dL (1.3-4.6) 02/10/24 23:08 Urine Color Light yellow (Yellow) 02/10/24 23:14 Urine Appearance Clear (CLEAR) 02/10/24 23:14 Urine pH 6 (5-7) 02/10/24 23:14 Ur Specific [place] 1.005 (1.005-1.030) 02/10/24 23:14 Urine Protein Neg (Negative) 02/10/24 23:14 Urine Glucose (UA) Norm (Normal) 02/10/24 23:14 Urine Ketones Negative (Negative) 02/10/24 23:14 Urine Blood Neg (Negative) 02/10/24 23:14 Urine Nitrate Negative (Negative) 02/10/24 23:14 Urine Bilirubin Neg (Negative) 02/10/24 23:14 Urine Urobilinogen Neg mg/dL (Negative) 02/10/24 23:14 Ur Leukocyte Esterase Negative (Negative) 02/10/24 23:14 Salicylates < 0.3 mg/dL (3-10) L 02/10/24 23:08 Urine Opiates Screen Negative ng/mL (Negative) 02/10/24 23:14 Acetaminophen < 5.0 ug/mL (10-30) L 02/10/24 23:08 Ur Barbiturates Screen Negative ng/mL (Negative) 02/10/24 23:14 Ur Phencyclidine Scrn Negative ng/mL (Negative) 02/10/24 23:14 Ur Amphetamines Screen Negative ng/mL (Negative) 02/10/24 23:14 U Benzodiazepines Scrn Negative ng/mL (Negative) 02/10/24 23:14 Urine Cocaine Screen Negative ng/mL (Negative) 02/10/24 23:14 U Marijuana (THC) Screen Negative ng/mL (Negative) 03/20/24 23:14 Ethyl Alcohol 264 mg/dL (0-10) H 02/10/24 23:08 No radiology studies performed this visit EKG Data EKG 1: Interpretation: Twelve-lead EKG obtained at 2250 and reviewed at 2250 demonstrates sinus rhythm, 92 bpm, IA interval 151, QRS duration 110, QT 369, QTc 418, there is no ST elevation or depression to demonstrate acute ischemia or infarction at present. Discharge Plan Discharge Patient Disposition: Admitted As Inpatient Clinical Impression: Suicidal ideation, Depression, Alcohol intoxication Condition: Stable Prescriptions: No Action albuterol sulfate 90 mcg/actuation HFA aerosol inhaler 2 inh INHALATION Q6H PRN (Reason: shortness of breath or wheezing) Qty: 8.5 0RF tramadol 50 mg tablet 50 mg PO Q6H PRN (Reason: pain) Qty: 10 0RF Coding Level of Care Code ED Grounds And Nursery Specialist for Kieran Lazaro
[2024-02-11 01:49] VITALS: BP 100/66; PULSE 100; RESP 18; O2SAT 92
--- NOTE | 2024-02-11 01:52 | PC.NURSE ---
Report called to BAY Baltazar in [facility]. All questions and concerns addressed at time of report.
[2024-02-11 01:54] VITALS: BP 124/82; PULSE 98; RESP 18; TEMP 36.5; O2SAT 98
--- NOTE | 2024-02-11 06:23 | PC.NURSE ---
pt resting admitted 4 hours ago. resp 16
[2024-02-11] MEDS: multivitamin therapeutic Tablet 1 TAB PO (08:12)
[2024-02-11] MEDS: folic acid 1 mg Tablet PO (08:12)
[2024-02-11 08:20] LABS: Basophils % 0.6 %; Eosinophils # 0.2 10^3/uL (0.0-0.8); Eosinophils % 2.9 %; Hematocrit 45.4 % (37-53); Lymphocytes # 2.3 10^3/uL (0.8-4.8); Lymphocytes % 41.8 %; Mean Corpuscular HGB Conc 32.4 g/dL (30-55); Mean Corpuscular Hemoglobin 31.2 pg (27-33); Mean Corpuscular Volume 96.4 fl (82-101); Mean Platelet Volume 10.6 fL (7.4-10.4); Monocytes # 0.7 10^3/uL (0.2-0.9); Monocytes % 12.5 %; Neutrophils # 2.26 10^3/uL (1.8-7.7); Neutrophils % 41.6 %; Nucleated Red Blood Cells % 0 %; Platelet Count 197 10^3/cmm (157-399); Red Blood Count 4.71 10^6/uL (3.85-5.65); Red Cell Distribution Width 15.3 % (12.1-15.1); White Blood Count 5.43 10^3/uL (3.29-11.43)
[2024-02-11 08:52] LABS: Alanine Aminotransferase 150 U/L (0-41); Albumin Level 4.1 g/dL (3.5-5.2); Alkaline Phosphatase 143 U/L (40-130); Anion Gap 15.8 (5-19); Aspartate Amino Transferase 235 U/L (0-40); Blood Urea Nitrogen 5 mg/dL (6-20); Calcium 9.2 mg/dL (8.5-10.5); Carbon Dioxide 25 mmol/L (22-29); Chloride 104 mmol/L (98-107); Creatinine Clr Calc Pharmacy 158.4209; Globulin 3.1 g/dL (1.3-4.6); Glomerular Filtration Rate 112.8 mL/min (90-130); Glucose 89 mg/dL (65-115); Osmolality Calculated 289 mOsm/kg (285-295); Potassium 3.8 mmol/L (3.5-5.1); Sodium 141 mmol/L (136-145); Total Bilirubin 0.5 mg/dL (0.15-1.2); Total Protein 7.2 g/dL (6.6-8.7)
--- NOTE | 2024-02-11 11:22 | P.NPUHP_ITS ---
Providers/Chief Complaint 2 Admitting Physician: Kali Sears MD Chief Complaint: MHE, depression HPI NPU History of Present Illness Chris García is a 33 year old male who had presented to the emergency department at [facility] with complaints of thoughts of suicide with no active plan. He had reported a long history of depression and states that he has not been on his Prozac for over 3 years. patient had reported that he had been sifting through his old memorabilia and pictures of his mother and was becoming more and more sad as he had reported that his mother had approximately 3 years ago suddenly around this time of the year. He reports that he drinks every few days approximately 8-10 beers and reports that his fianc?e believes that he drinks too much. He reports that he has occasional suicidal thoughts but has never harmed himself. He reports having problems in the past few months with low motivation, low energy, difficulties with concentration, and frequent periods of sadness with no tearfulness. He does report having problems with anxiety as well but denies any history of panic attacks. He had reported having previously been treated for ADHD as a child but reports not having been on those medications for several years. He had stated that he had been released from [facility] 3 years ago after serving 12 years for charges of auto theft. He denies any hillary. He denies any history of psychosis. He did not endorse any history of any other drugs or alcohol. Patient had endorsed no history of alcohol withdrawal symptoms with no history of shakes, blackouts or seizures. Inpatient psychiatric history: None Outpatient psychiatric history: Previously diagnosed with ADHD as a child and adolescent. He had also been diagnosed with depression with previous trials on stimulants and previously having used Prozac 20 mg for several years. He has no history of psychotherapy. Current medications: Albuterol Allergies: No known drug allergies Medical history: COPD, Surgical History: none Legal history: History of incarceration for 12 years from age [age]. He reports currently not being on probation. He had reported a history of problems being placed in the juvenile justice system during his adolescence. Drug and alcohol history: As above Family psychiatric history: Alcoholism in father and ADHD in child. Social history: Patient had reported no developmental delays or problems with learning. He had though reported having problems with attention and concentration and stated that he had been treated for ADHD. He had a noted history of conduct problems including stealing cars. He was raised in an intact family by his biological parents. He has 1-2 siblings. He had reported no history of sexual physical or emotional abuse. He currently lives in [facility] with his emory and his 9-year-old daughter. 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 He reports no worsening psychosocial stressors. His mother had from a blood clot several years ago and reports that he was very close with her. Meds NPU Home Medications Medication Instructions Recorded Confirmed Last Taken Type albuterol sulfate 90 mcg/actuation 2 inh inhalation Q6H PRN shortness 05/31/20 02/11/24 Unknown Rx aerosol inhaler of breath or wheezing #8.5 grams Allergies Allergy/AdvReac Type Severity Reaction Status Date / Time No Known Allergies Allergy Verified 06/26/20 10:08 PFSH NPU 2 PFSH: Social History Smoking and tobacco/nicotine status: current every day tobacco/nicotine user Alcohol intake: never Substance/Drug Use: never Mental Status Exam 2 MSE Comments: Patient is a casually dressed white male who was friendly and cooperative on interview. He appeared somewhat fidgety. There was no evidence of any other abnormal involuntary motor movements tics or tremors. There was the presence of moderate psychomotor retardation. His speech was normal in volume with some stuttering noted. There was normal latency and speech. His gait appeared within normal limits. His mood was described as depressed. His affect was restricted in range and mood congruent. His thought process was linear logical and goal-directed. His thought content showed no evidence of homicidal or suicidal ideation currently. He did not appear to be responding to internal stimuli. There is no clear evidence of delusional thinking. His recent and remote memory appeared grossly intact. His insight is poor. His judgment is poor. His impulse control is poor. Vitals/I&O/Wt Last Vital Signs Temp 97.7 F 02/11/24 01:54 Pulse 98 02/11/24 01:54 Resp 18 02/11/24 01:54 BP 124/82 02/11/24 01:54 Pulse Ox 98 02/11/24 01:54 O2 Del Method Room Air 02/11/24 01:58 Weight last 48 hrs Weight 99.79 kg Data NPU 02/11/24 08:09 02/11/24 08:09 Other Labs: MAA=511, UOQ=935, TeuTrlvjkkixhm=655. A&P Assessment and plan (1) Suicidal ideation: (2) Depression: Qualifiers: Depression Type: reactive depression Qualified Code(s): F32.9 - Major depressive disorder, single episode, unspecified (3) Alcohol intoxication: Qualifiers: Complication of substance-induced condition: uncomplicated Qualified Code(s): F10.920 - Alcohol use, unspecified with intoxication, uncomplicated Plan 33-year-old white male who presented with a blood alcohol level 230 with elevated liver function tests while reporting alcohol abuse and depression with suicidal ideation. Patient would likely benefit from a brief inpatient hospitalization. He had minimized any previous alcohol withdrawal symptoms but does appear to be underreporting his alcohol abuse. . 1. Encourage individual, group and milieu therapy. 2.Recommend sober living treatment at the highest level of care to which the patient is willing to commit. 3.Continue q-15 minute checks for safety.? 4. Restart Prozac 20mg in AM. Involuntary Hold Information 2 96 Hour Hold: 96 Hour Involuntary Admission: No Attestations NPU 2 Medical Necessity Statement*: inpatient hospitalization is medically necessary and deemed to be the clinically appropriate intervention at this time. Medications will be initiated and adjusted as clinically indicated. Patient will be hospitalized for at least 2 midnights. The patient's likely length of stay is 2 to 3 days. Coding Level of Care Code Acute Code for [facility] Fwd Diagnoses Suicidal ideation R45.851 Depression F32.9 Depression Type: reactive depression Alcohol intoxication F10.920 Complication of substance-induced condition: uncomplicated
[2024-02-11] MEDS: nicotine 4 mg lozenge MUCOUS MEM (13:37)
[2024-02-11 14:00] VITALS: BP 131/83; PULSE 97; RESP 16; TEMP 36.4; O2SAT 98
[2024-02-11] MEDS: nicotine 2 mg Gum BUCCAL (19:44)
[2024-02-11 19:54] VITALS: BP 137/93; PULSE 75; RESP 17; TEMP 36.3; O2SAT 98
--- NOTE | 2024-02-11 20:41 | PC.NURSE ---
Pt sitting in dayroom for assessment. Pt currently denies SI/HI/AVH/anxiety & depression. Pt given PRN nicotine gum. All current pt needs are met & no distress noted.
[2024-02-12 06:00] VITALS: BP 127/87; PULSE 75; RESP 16; TEMP 36.6; O2SAT 98
[2024-02-12] MEDS: multivitamin therapeutic Tablet 1 TAB PO (08:05)
[2024-02-12] MEDS: folic acid 1 mg Tablet PO (08:05)
[2024-02-12] MEDS: fluoxetine 20 mg Capsule PO (12:49)
--- NOTE | 2024-02-12 12:54 | W.PM.NPUDCS ---
Diagnoses at Discharge Discharge Diagnosis (1) Suicidal ideation: Status: Acute (2) Depression: Status: Acute Qualifiers: Depression Type: reactive depression Qualified Code(s): F32.9 - Major depressive disorder, single episode, unspecified (3) Alcohol intoxication: Status: Acute Qualifiers: Complication of substance-induced condition: uncomplicated Qualified Code(s): F10.920 - Alcohol use, unspecified with intoxication, uncomplicated Reason for Visit Reason for Visit: MHE, depression Brief History: History of Present Illness Chris García is a 33 year old male who had presented to the emergency department at [facility] with complaints of thoughts of suicide with no active plan. He had reported a long history of depression and states that he has not been on his Prozac for over 3 years. patient had reported that he had been sifting through his old memorabilia and pictures of his mother and was becoming more and more sad as he had reported that his mother had approximately 3 years ago suddenly around this time of the year. He reports that he drinks every few days approximately 8-10 beers and reports that his fianc?e believes that he drinks too much. He reports that he has occasional suicidal thoughts but has never harmed himself. He reports having problems in the past few months with low motivation, low energy, difficulties with concentration, and frequent periods of sadness with no tearfulness. He does report having problems with anxiety as well but denies any history of panic attacks. He had reported having previously been treated for ADHD as a child but reports not having been on those medications for several years. He had stated that he had been released from residential 3 years ago after serving 12 years for charges of auto theft. He denies any hillary. He denies any history of psychosis. He did not endorse any history of any other drugs or alcohol. Patient had endorsed no history of alcohol withdrawal symptoms with no history of shakes, blackouts or seizures. Inpatient psychiatric history: None Outpatient psychiatric history: Previously diagnosed with ADHD as a child and adolescent. He had also been diagnosed with depression with previous trials on stimulants and previously having used Prozac 20 mg for several years. He has no history of psychotherapy. Current medications: Albuterol Allergies: No known drug allergies Medical history: COPD, Surgical History: none Legal history: History of incarceration for 12 years from age [age]. He reports currently not being on probation. He had reported a history of problems being placed in the juvenile justice system during his adolescence. Drug and alcohol history: As above Family psychiatric history: Alcoholism in father and ADHD in child. Social history: Patient had reported no developmental delays or problems with learning. He had though reported having problems with attention and concentration and stated that he had been treated for ADHD. He had a noted history of conduct problems including stealing cars. He was raised in an intact family by his biological parents. He has 1-2 siblings. He had reported no history of sexual physical or emotional abuse. He currently lives in [facility] with his emory and his 9-year-old daughter. He currently works in the [employer] business. He reports no worsening psychosocial stressors. His mother had from a blood clot several years ago and reports that he was very close with her. Hospital Course Hospital Course He acclimated to the individual, group and milieu therapies provided. He presented with alcohol intoxication and withdrawal with depression and off of his medication. He was placed on the CIWA protocol with no significant difficulties with withdrawal. He was restarted on Prozac which she had been on in the past and given thiamine as is appropriate for someone with his drinking level. He worked with the social work team for appropriate aftercare follow-up. He filled out a [facility] application which is turned in and he was connected to [facility] resources. He had notable improvement and was able to contract for safety outside of the hospital prior to discharge. During the hospitalization, the patient had routine laboratory studies which were within normal limits except for a few outliers including his BAL of 264. Additionally, there was a general medical evaluation which was also within normal limits and revealed no new acute processes except for the intoxication and withdrawal. At the time of discharge, he denied psychosis or lethality. Mood and anxiety were well managed. The patient endorsed a plan to avoid all drugs of abuse and follow up with the aftercare recommendations of the treatment team. The patient was evaluated and deemed to be absent credible lethality and had achieved the maximum benefit from an inpatient hospitalization, and so was discharged. Involuntary Hold Information 96 Hour Hold: 96 Hour Involuntary Admission: No Mental Status Exam MSE Comments: Patient is a overweight versus obese white male in hospital scrubs with limited grooming and adequate eye contact. No abnormal movements except for mild psychomotor retardation and no notable tremulousness. His speech was normal in rate and volume with some stuttering noted. His gait appeared within normal limits. His mood was described as feeling better his affect appeared congruent and euthymic. His thought process was organized. Thought content: Patient denied suicidal or homicidal ideation, there were no delusions reported or noted, he denied any auditory or visual hallucinations. Attention and concentration were intact and memory appeared reliable but none were formally tested. He was alert and oriented x 3. Insight and judgment were limited but improving. Impulse control was limited. Discharge Data Studies Completed and Pending: Laboratory Results WBC 5.43 10^3/uL (3.2 9-11.43) 02/11/24 08:09 RBC 4.71 10^6/uL (3.8 5-5.65) 02/11/24 08:09 Hgb 14.70 g/dL (11.27 -16.99) 02/11/24 08:09 Hct 45.4 % (37-53) 02/11/24 08:09 MCV 96.4 fl (82-101) 02/11/24 08:09 MCH 31.2 pg (27-33) 02/11/24 08:09 MCHC 32.4 g/dL (30-55) 02/11/24 08:09 RDW 15.3 % (12.1-15.1 ) H 02/11/24 08:09 Plt Count 197 10^3/cmm (157 -399) 02/11/24 08:09 MPV 10.6 fL (7.4-10.4 ) H 02/11/24 08:09 Neut % (Auto) 41.6 % 02/11/24 08:09 Lymph % (Auto) 41.8 % 02/11/24 08:09 [place] % (Auto) 12.5 % 02/11/24 08:09 Eos % (Auto) 2.9 % 02/11/24 08:09 Baso % (Auto) 0.6 % 02/11/24 08:09 Neut # (Auto) 2.26 10^3/uL (1.8 -7.7) 02/11/24 08:09 Lymph # (Auto) 2.3 10^3/uL (0.8- 4.8) 02/11/24 08:09 [place] # (Auto) 0.7 10^3/uL (0.2- 0.9) 02/11/24 08:09 Eos # (Auto) 0.2 10^3/uL (0.0- 0.8) 02/11/24 08:09 Baso # (Auto) 0.0 10^3/uL (0.0- 0.1) 02/11/24 08:09 Nucleated RBC % (a uto) 0 % 02/11/24 08:09 Nucleated RBCs # 0.0 /100WBC 02/11/24 08:09 Sodium 141 mmol/L (136-1 45) 02/11/24 08:09 Potassium 3.8 mmol/L (3.5-5 .1) 02/11/24 08:09 Chloride 104 mmol/L (98-10 7) 02/11/24 08:09 Carbon Dioxide 25 mmol/L (22-29) 02/11/24 08:09 Anion Gap 15.8 (5-19) 02/11/24 08:09 BUN 5 mg/dL (6-20) L 02/11/24 08:09 Creatinine 0.8 mg/dL (0.7-1. 2) 02/11/24 08:09 GFR Calculation 112.8 mL/min (90- 130) 02/11/24 08:09 Glucose 89 mg/dL (65-115) 02/11/24 08:09 Calculated Osmolal ity 289 mOsm/kg (285- 295) 02/11/24 08:09 Calcium 9.2 mg/dL (8.5-10 .5) 02/11/24 08:09 Total Bilirubin 0.5 mg/dL (0.15-1 .2) 02/11/24 08:09 AST 235 U/L (0-40) H 02/11/24 08:09 ALT 150 U/L (0-41) H 02/11/24 08:09 Alkaline Phosphata se 143 U/L (40-130) H 02/11/24 08:09 Total Protein 7.2 g/dL (6.6-8.7 ) 02/11/24 08:09 Albumin 4.1 g/dL (3.5-5.2 ) 02/11/24 08:09 Globulin 3.1 g/dL (1.3-4.6 ) 02/11/24 08:09 Urine Color Light yellow (Ye llow) 02/10/24 23:14 Urine Appearance Clear (CLEAR) 02/10/24 23:14 Urine pH 6 (5-7) 02/10/24 23:14 Ur Specific Gravit y 1.005 (1.005-1.0 30) 02/10/24 23:14 Urine Protein Neg (Negative) 02/10/24 23:14 Urine Glucose (UA) Norm (Normal) 02/10/24 23:14 Urine Ketones Negative (Negati ve) 02/10/24 23:14 Urine Blood Neg (Negative) 02/10/24 23:14 Urine Nitrate Negative (Negati ve) 02/10/24 23:14 Urine Bilirubin Neg (Negative) 02/10/24 23:14 Urine Urobilinogen Neg mg/dL (Negati ve) 02/10/24 23:14 Ur Leukocyte Ayanna ase Negative (Negati ve) 02/10/24 23:14 Salicylates < 0.3 mg/dL (3-10 ) L 02/10/24 23:08 Urine Opiates Scre en Negative ng/mL (N egative) 02/10/24 23:14 Acetaminophen < 5.0 ug/mL (10-3 0) L 02/10/24 23:08 Ur Barbiturates Sc reen Negative ng/mL (N egative) 02/10/24 23:14 Ur Phencyclidine S crn Negative ng/mL (N egative) 02/10/24 23:14 Ur Amphetamines Sc reen Negative ng/mL (N egative) 02/10/24 23:14 U Benzodiazepines Scrn Negative ng/mL (N egative) 02/10/24 23:14 Urine Cocaine Scre en Negative ng/mL (N egative) 02/10/24 23:14 U Marijuana (THC) Screen Negative ng/mL (N egative) 02/10/24 23:14 Ethyl Alcohol 264 mg/dL (0-10) H 02/10/24 23:08 Vitals: Last Vital Signs Temp 97.8 F 02/12/24 06:00 Pulse 75 02/12/24 06:00 Resp 16 02/12/24 06:00 BP 127/87 02/12/24 06:00 Pulse Ox 98 02/12/24 06:00 O2 Del Method Room Air 02/12/24 06:00 Discharge Plan Discharge Patient Disposition: Home Condition: Stable Prescriptions: New fluoxetine 20 mg Capsule 20 mg PO DAILY 30 Days Qty: 30 1RF Vitamin B-1 (mononitrate) 100 mg Tablet 100 mg PO DAILY 30 Days Qty: 30 1RF Continued albuterol sulfate 90 mcg/actuation HFA aerosol inhaler 2 inh INHALATION Q6H PRN (Reason: shortness of breath or wheezing) Qty: 8.5 0RF Discharge Orders: Discharge Order (Routine); Ordered 02/12/24 Ordered By: Kali Sears Referrals: [facility] [Other] (Your application has been sent. Call to follow up. ) [facility] [Outside] - 02/15/24 12:30 pm (Initial appointment scheduled with Lucero Haney. ) Discharge Diet: Regular Discharge Activity: Resume usual activity Patient Instructions: Depression (DC), Help Prevent Suicide (ED), Suicide Prevention (DC), Opioid Safety Discharge Attestations NPU Time Spent in Discharge Care*: less than 30 min Specific Discharge Activities: Specific discharge activities: educating patient, discussing with case consultant/social workers/dc planners, documenting/other paperwork and evaluating patient/reviewing data Coding Level of Care Code Acute Code for g Fwd Diagnoses Suicidal ideation R45.851 Depression F32.9 Depression Type: reactive depression Alcohol intoxication F10.920 Complication of substance-induced condition: uncomplicated
[2024-02-12 12:55] VITALS: BP 127/87; PULSE 75; RESP 16; TEMP 36.6; O2SAT 98
[2024-02-12] MEDS: thiamine 100 mg Tablet PO (13:24)
== END 2024-02-12 15:02 | disposition home or self-care (01) | DRG 897 ==
LOC: ER 02-11 01:43 → NP 02-11 01:51
PROVIDERS: Admitting Provider Psychiatry & Neurology Psychiatry; Emergency Provider Internal Medicine; Visit Provider Psychiatry & Neurology Psychiatry
DX: F10.129 Alcohol abuse with intoxication, unspecified (principal); R45.851 Suicidal ideations; Y90.7 Blood alcohol level of 200-239 mg/100 ml; F10.139 Alcohol abuse with withdrawal, unspecified; F32.9 Major depressive disorder, single episode, unspecified; F41.9 Anxiety disorder, unspecified; J44.9 Chronic obstructive pulmonary disease, unspecified; F17.200 Nicotine dependence, unspecified, uncomplicated; Z81.1 Family history of alcohol abuse and dependence
CPT/HCPCS: 36415; 80053; 80306; 80307; 81003; 85025; 93005; 97165; 99285

== ENCOUNTER 2024-02-24 15:58 | Emergency (ER) | payer SELFPAY ==
[2024-02-24 16:03] VITALS: BP 143/92; PULSE 93; RESP 16; TEMP 36.4; O2SAT 98; BMI 31.1
--- NOTE | 2024-02-24 16:17 | ED_ITS ---
Documented by User: JUAN R Atkinson 02/24/24 18:23 HPI - General Adult General: Chief complaint: General Medical Stated complaint: abd pain Time Seen by Provider: 02/24/24 16:10 Source: patient Mode of arrival: ambulatory Limitations: no limitations History of Present Illness: Patient is a 33-year-old male presenting to the emergency department requesting COVID test. Patient notes that his work sent him for test, and due to monetary reasons he did not want to go to the health department and currently does not have a primary care to follow-up with. He is not reporting any symptoms at this time, and states that he just needs the test and a work note. He does state he has a history of asthma but that his breathing has been normal and he has enough albuterol at home. He denies any chest pain, cough, or any other symptoms at this time. Associated symptoms: Deny chest pain, dyspnea, headache(s), nausea, rash, palp itations or vomiting Review of Systems General: Reports: 10 or more systems reviewed and unremarkable except in HPI and below Const: Reports: other (Present for COVID test); Denies: fever(s), chills or fatigue Eyes: Denies: change in vision ENMT: Denies: throat pain, ear or mastoid pain or nasal discharge Card: Denies: chest pain, palpitations, swelling of feet/ankles or lightheadedness Resp: Denies: dyspnea, productive cough or wheezing GI: Denies: abdominal pain, nausea, vomiting, diarrhea or constipation : Denies: flank pain, difficulty urinating, dysuria or urinary frequency Musc: Denies: neck pain, back pain or joint pain Skin/Breast: Denies: rash Neuro: Denies: headache(s), numbness in extremities or weakness in extremities PFS ED PFSH: Medical History Psychiatric care Social History Smoking and tobacco/nicotine status: current every day tobacco/nicotine user Alcohol intake: never Substance/Drug Use: never Physical Exam Const: COMMON NORMALS: no acute distress, patient oriented x3 and no limitations GENERAL APPEARANCE: cooperative, comfortable and well developed ORIENTATION/CONSCIOUSNESS: Yes awake, Yes oriented to person, Yes oriented to place and Yes oriented to time HENMT: COMMON NORMALS: normocephalic, atraumatic and hearing grossly normal bilaterally HEAD & SCALP: normocephalic and atraumatic Eye: COMMON NORMALS: Equal, round and reactive pupils present, EOMs intact bilaterally and conjunctivae normal CONJUNCTIVA: Yes conjunctivae normal PUPIL: Yes Equal, round and reactive pupils present Neck/C-Spine: COMMON NORMALS: full ROM, supple and no JVD Resp: COMMON NORMALS: normal respiratory effort, No retractions, No use of accessory muscles and clear to auscultation bilaterally AUSCULTATION: clear to auscultation bilaterally Cardio: COMMON NORMALS: no JVD, regular rate, regular rhythm, No clicks present (Cardio), No murmurs present (Cardio) and No rub (Cardio) RATE: regular rate RHYTHM: regular rhythm GI: COMMON NORMALS: Normal to inspection, nondistended, normoactive bowel sounds present, Soft to palpation and non-tender PALPATION: Yes Soft to palpation Extremity: COMMON NORMALS: normal to inspection, full ROM and capillary refill normal Neuro: COMMON NORMALS: patient oriented x3, moves all extremities, no focal motor deficits and no sensory deficits noted SENSORIUM/ORIENTATION: Yes oriented to person, Yes oriented to place and Yes oriented to time Psych: COMMON NORMALS: mental status grossly normal and Normal thought process present THOUGHT PROCESS: Normal thought process present Skin: COMMON NORMALS: no rashes or lesions noted GENERAL SKIN EXAM: no rashes or lesions noted Course Vital Signs: Vital signs: Vital Signs Temperature 97.6 F 02/24/24 16:03 Pulse Rate 93 02/24/24 16:03 Respiratory Rate 16 02/24/24 16:03 Blood Pressure 143/92 02/24/24 16:03 Pulse Oximetry 98 02/24/24 16:03 [facility] - General Adult Medical Decision Making This patient was seen and evaluated in the emergency department as he was requesting a COVID test for work. He also noted that he needed a work note that stated he was at the emergency department and was getting assessed for COVID. He had no complaints such as shortness of breath or cough, and his vitals were normal on arrival. Examination normal. His COVID swab was negative. Patient will be given a work note and discharged home. Return precautions are given. Patient agrees with plan. Lab Data I reviewed the patient's lab results. Laboratory Results SARS-CoV-2 Ag (Rapid) negative (Negative) 02/24/24 16:37 No radiology studies performed this visit Discharge Plan Discharge Patient Disposition: Home Clinical Impression: Encounter for screening for COVID-19 Condition: Stable Prescriptions: No Action albuterol sulfate 90 mcg/actuation HFA aerosol inhaler 2 inh INHALATION Q6H PRN (Reason: shortness of breath or wheezing) Qty: 8.5 0RF fluoxetine 20 mg Capsule 20 mg PO DAILY 30 Days Qty: 30 1RF Vitamin B-1 (mononitrate) 100 mg Tablet 100 mg PO DAILY 30 Days Qty: 30 1RF Discharge Orders: Discharge ED (Routine); Ordered 02/24/24 Ordered By: Pipe Marquez Discharge Diet: Usual diet Discharge Activity: Resume usual activity Activity Restrictions/Additional Instructions: Your COVID swab was negative today. Utilize work note provided. Return with any new or concerning symptoms you may have. 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 [employer] Documented by User: Dexter Hancock DO 02/27/24 08:48 HPI - General Adult General: Chief complaint: General Medical Stated complaint: abd pain Time Seen by Provider: 02/24/24 16:10 PFSH ED PFSH: Medical History Psychiatric care Social History Smoking and tobacco/nicotine status: current every day tobacco/nicotine user Alcohol intake: never Substance/Drug Use: never Course Vital Signs: Vital signs: Vital Signs Temperature 97.6 F 02/24/24 16:03 Pulse Rate 93 02/24/24 16:03 Respiratory Rate 16 02/24/24 16:03 Blood Pressure 143/92 02/24/24 16:03 Pulse Oximetry 98 02/24/24 16:03 MDM - General Adult Medical Decision Making This patient was seen and evaluated in the emergency department as he was requesting a COVID test for work. He also noted that he needed a work note that stated he was at the emergency department and was getting assessed for COVID. He had no complaints such as shortness of breath or cough, and his vitals were normal on arrival. Examination normal. His COVID swab was negative. Patient will be given a work note and discharged home. Return precautions are given. Patient agrees with plan. Chart reviewed Lab Data Laboratory Results SARS-CoV-2 Ag (Rapid) negative (Negative) 02/24/24 16:37 Discharge Plan Discharge Patient Disposition: Home Clinical Impression: Encounter for screening for COVID-19 Condition: Stable Prescriptions: No Action albuterol sulfate 90 mcg/actuation HFA aerosol inhaler 2 inh INHALATION Q6H PRN (Reason: shortness of breath or wheezing) Qty: 8.5 0RF fluoxetine 20 mg Capsule 20 mg PO DAILY 30 Days Qty: 30 1RF Vitamin B-1 (mononitrate) 100 mg Tablet 100 mg PO DAILY 30 Days Qty: 30 1RF Discharge Orders: Discharge ED (Routine); Ordered 02/24/24 Ordered By: Pipe Marquez Discharge Diet: Usual diet Discharge Activity: Resume usual activity Activity Restrictions/Additional Instructions: Your COVID swab was negative today. Utilize work note provided. Return with any new or concerning symptoms you may have. 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
[2024-02-24 16:59] LABS: SARS Covid-2 Antigen negative (Negative)
== END 2024-02-24 17:15 | disposition home or self-care (01) ==
PROVIDERS: Emergency Provider Physician Assistant
DX: Z11.52 Encounter for screening for COVID-19 (principal); Z72.0 Tobacco use
CPT/HCPCS: 87426; 99283

== ENCOUNTER 2024-07-02 21:10 | Emergency (ER) | payer SELFPAY ==
[2024-07-02 21:19] VITALS: BP 138/80; PULSE 96; RESP 17; TEMP 36.6; O2SAT 96; BMI 28.5
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
[2024-07-02] MEDS: bacitracin ointment Pkt 1 EACH TOPICAL (21:54)
[2024-07-02] MEDS: amoxicillin-clav 875-125 mg Tablet 1 TAB PO (21:54)
== END 2024-07-02 21:57 | disposition home or self-care (01) ==
PROVIDERS: Emergency Provider Nurse Practitioner Family
DX: T24.202A Burn of second degree of unspecified site of left lower limb, except ankle and foot, initial encounter (principal); B96.89 Other specified bacterial agents as the cause of diseases classified elsewhere; X17.XXXA Contact with hot engines, machinery and tools, initial encounter; Z72.0 Tobacco use
CPT/HCPCS: 99283

== ENCOUNTER 2024-07-24 20:29 | Emergency (ER) | payer SELFPAY ==
[2024-07-24 20:52] VITALS: BP 117/77; PULSE 99; RESP 17; TEMP 36.7; O2SAT 97; BMI 27.8
--- NOTE | 2024-07-24 21:13 | W.ED.DENTAL ---
HPI - Dental/Oral General: Chief complaint: Dental/Oral Stated complaint: mouth pain Time Seen by Provider: 07/24/24 21:11 History of Present Illness: 33-year-old male patient comes in today with complaints of left upper jaw pain. Patient reports symptoms for the last 2 to 3 days. Patient reports a prior dental infection that has left upper jaw. Related Data Previous Rx's Medication Instructions Recorded albuterol sulfate 90 mcg/actuation 2 inh inhalation Q6H PRN shortness 05/31/20 aerosol inhaler of breath or wheezing #8.5 grams fluoxetine 20 mg capsule 20 mg PO DAILY 30 days #30 caps 02/12/24 thiamine mononitrate (vit B1) 100 100 mg PO DAILY 30 days #30 tabs 02/12/24 mg tablet (Vitamin B-1 (mononitrate)) mupirocin 2 % topical ointment 1 applic topical BID #22 grams 07/02/24 amoxicillin 875 mg-potassium 1 tab PO BID #20 tabs 07/24/24 clavulanate 125 mg tablet ibuprofen 800 mg tablet 800 mg PO Q6H PRN pain #30 tabs 07/24/24 Allergies Allergy/AdvReac Type Severity Reaction Status Date / Time No Known Allergies Allergy Verified 07/24/24 20:54 Review of Systems General: Reports: 10 or more systems reviewed and unremarkable except in HPI and below PFSH ED PFSH: Medical History Psychiatric care Social History Smoking and tobacco/nicotine status: current every day tobacco/nicotine user Alcohol intake: never Substance/Drug Use: never Physical Exam Const: COMMON NORMALS: alert HENMT: COMMON NORMALS: normocephalic HEAD & SCALP: normocephalic OTHER: Fair dentition. Mild swelling left upper gingiva tissue of the first molar Resp: COMMON NORMALS: normal respiratory effort Cardio: COMMON NORMALS: regular rate RATE: regular rate Extremity: COMMON NORMALS: normal to inspection Neuro: SENSORIUM/ORIENTATION: Yes alert Skin: COMMON NORMALS: turgor normal GENERAL SKIN EXAM: turgor normal Course Vital Signs: Vital signs: Vital Signs Temperature 98.1 F 07/24/24 20:52 Pulse Rate 99 07/24/24 20:52 Respiratory Rate 17 07/24/24 20:52 Blood Pressure 117/77 07/24/24 20:52 Pulse Oximetry 97 07/24/24 20:52 Oxygen Delivery Me thod Room Air 07/24/24 20:52 MDM - Dental/Oral Medical Decision Making 33-year-old male patient comes in today for complaints of dental pain. On exam patient has some carious teeth and has a mild swelling to the gingival tissue of the left upper jaw around the first molar. Differential diagnosis includes but not limited to dental carry, dental pain, dental abscess. Will go ahead and treat for dental abscess with Augmentin and ibuprofen. Recommended follow-up with dentist for definitive care. Patient reports understanding agreed to plan. No radiology studies performed this visit Discharge Plan Discharge Patient Disposition: Home Clinical Impression: Dental abscess Condition: Stable Prescriptions: New ibuprofen 800 mg tablet 800 mg PO Q6H PRN (Reason: pain) Qty: 30 0RF Continued amoxicillin-pot clavulanate 875-125 mg tablet 1 tab PO BID Qty: 20 0RF No Action albuterol sulfate 90 mcg/actuation HFA aerosol inhaler 2 inh INHALATION Q6H PRN (Reason: shortness of breath or wheezing) Qty: 8.5 0RF mupirocin 2 % ointment 1 applic topical BID Qty: 22 0RF fluoxetine 20 mg Capsule 20 mg PO DAILY 30 Days Qty: 30 1RF Vitamin B-1 (mononitrate) 100 mg Tablet 100 mg PO DAILY 30 Days Qty: 30 1RF Discharge Orders: Discharge ED (Routine); Ordered 07/24/24 Ordered By: Ac Hawthorne Discharge Diet: Usual diet Discharge Activity: Increase activity as tolerated Patient Instructions: Toothache (ED) Activity Restrictions/Additional Instructions: Follow-up with dentist for definitive care. Antibiotics as directed. Ibuprofen and acetaminophen for pain. Ice packs for further pain relief. Return to ER for new concerns. 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
== END 2024-07-24 21:45 | disposition home or self-care (01) ==
PROVIDERS: Emergency Provider Nurse Practitioner Family
DX: K04.7 Periapical abscess without sinus (principal); Z72.0 Tobacco use
CPT/HCPCS: 99283

== ENCOUNTER 2024-12-07 12:00 | Emergency (ER) | payer SELFPAY ==
[2024-12-07 12:07] VITALS: BP 114/73; PULSE 98; RESP 16; TEMP 36.7; O2SAT 99; BMI 27.8
--- NOTE | 2024-12-07 12:17 | ED_ITS ---
HPI - General Adult General: Chief complaint: General Medical Stated complaint: physical eval Time Seen by Provider: 12/07/24 12:13 Source: patient Mode of arrival: ambulatory Limitations: no limitations History of Present Illness: 34-year-old male states he was sent home from work yesterday states that they told him he looked pale he states that since then he has not felt completely normal he has no complaints at this time he states they will not let him return to work without a work note and he needs a work note that is the only complaint he has denies headache vomiting chest pain. Associated symptoms: Deny chest pain, dyspnea, headache(s), nausea, rash or vomiting Related Data Previous Rx's Medication Instructions Recorded albuterol sulfate 90 mcg/actuation 2 inh inhalation Q6H PRN shortness 05/31/20 aerosol inhaler of breath or wheezing #8.5 grams fluoxetine 20 mg capsule 20 mg PO DAILY 30 days #30 caps 02/12/24 thiamine mononitrate (vit B1) 100 100 mg PO DAILY 30 days #30 tabs 02/12/24 mg tablet (Vitamin B-1 (mononitrate)) mupirocin 2 % topical ointment 1 applic topical BID #22 grams 07/02/24 amoxicillin 875 mg-potassium 1 tab PO BID #20 tabs 07/24/24 clavulanate 125 mg tablet ibuprofen 800 mg tablet 800 mg PO Q6H PRN pain #30 tabs 07/24/24 Allergies Allergy/AdvReac Type Severity Reaction Status Date / Time No Known Allergies Allergy Verified 07/24/24 20:54 Review of Systems Const: Denies: fever(s), chills, body aches or change in appetite ENMT: Denies: throat pain or dental pain Card: Denies: chest pain Resp: Denies: dyspnea GI: Denies: abdominal pain, nausea, vomiting or diarrhea : Denies: dysuria Musc: Denies: neck pain or back pain Skin/Breast: Denies: rash Neuro: Denies: headache(s) PFSH ED PFSH: Medical History Psychiatric care Social History Smoking and tobacco/nicotine status: current every day tobacco/nicotine user Alcohol intake: never Substance/Drug Use: never Physical Exam Const: COMMON NORMALS: no acute distress, patient oriented x3 and healthy appearing HENMT: COMMON NORMALS: normocephalic and atraumatic HEAD & SCALP: normocephalic and atraumatic Eye: COMMON NORMALS: conjunctivae normal CONJUNCTIVA: Yes conjunctivae normal Neck/C-Spine: COMMON NORMALS: full ROM and supple Chest: COMMONS NORMALS: normal inspection of the chest and normal palpation of entire chest wall Resp: COMMON NORMALS: normal respiratory effort, No retractions, No use of accessory muscles and clear to auscultation bilaterally AUSCULTATION: clear to auscultation bilaterally Cardio: COMMON NORMALS: regular rate, regular rhythm and No murmurs present (Cardio) RATE: regular rate RHYTHM: regular rhythm Extremity: COMMON NORMALS: normal to inspection and full ROM Neuro: COMMON NORMALS: patient oriented x3, moves all extremities and no focal motor deficits Psych: COMMON NORMALS: mental status grossly normal, Normal thought process present and cooperative THOUGHT PROCESS: Normal thought process present Skin: COMMON NORMALS: no rashes or lesions noted and no wounds GENERAL SKIN EXAM: no rashes or lesions noted Course Vital Signs: Vital signs: Vital Signs Temperature 98.0 F 12/07/24 12:07 Pulse Rate 98 12/07/24 12:07 Respiratory Rate 16 12/07/24 12:07 Blood Pressure 114/73 12/07/24 12:07 Pulse Oximetry 99 12/07/24 12:07 Oxygen Delivery Me thod Room Air 12/07/24 12:07 [facility] - General Adult Medical Decision Making Patient presents here for a work note to be able to return back to work he has no medical complaints he is well-appearing here vital signs are normal he is stable for discharge No radiology studies performed this visit Discharge Plan Discharge Patient Disposition: Home Clinical Impression: Adult wellness visit Condition: Stable Prescriptions: No Action albuterol sulfate 90 mcg/actuation HFA aerosol inhaler 2 inh INHALATION Q6H PRN (Reason: shortness of breath or wheezing) Qty: 8.5 0RF mupirocin 2 % ointment 1 applic topical BID Qty: 22 0RF ibuprofen 800 mg tablet 800 mg PO Q6H PRN (Reason: pain) Qty: 30 0RF amoxicillin-pot clavulanate 875-125 mg tablet 1 tab PO BID Qty: 20 0RF fluoxetine 20 mg Capsule 20 mg PO DAILY 30 Days Qty: 30 1RF Vitamin B-1 (mononitrate) 100 mg Tablet 100 mg PO DAILY 30 Days Qty: 30 1RF Discharge Orders: Discharge ED (Routine); Ordered 12/07/24 Ordered By: Fran Rojas Discharge Diet: Advance as tolerated Discharge Activity: Resume usual activity Stand Alone Forms: Work/School Release Coding Level of Care Code 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
== END 2024-12-07 12:44 | disposition home or self-care (01) ==
PROVIDERS: Emergency Provider Emergency Medicine
DX: Z00.00 Encounter for general adult medical examination without abnormal findings (principal); Z72.0 Tobacco use
CPT/HCPCS: 99281

== ENCOUNTER 2024-12-16 13:31 | Inpatient (IN) | payer SELFPAY ==
[2024-12-16] VITALS (10 sets, daily range): BP systolic 92–134; BP diastolic 63–74; PULSE 79–103; RESP 16–20; TEMP 36.7; O2SAT 93–98; BMI 27.3
--- NOTE | 2024-12-16 14:18 | ED_ITS ---
HPI - Abdominal Pain 2 General: Chief Complaint: Abdominal Pain Stated Complaint: pain right side rib area Time Seen by Provider: 12/16/24 14:10 History of Present Illness: 34-year-old male presents with vomiting of bright red blood. Reports has been doing it for about 2-1/2 weeks. It over the last couple days has gotten a lot worse and he has developed some significant pain in his right upper quadrant. Patient does admit to drinking at least 10 shots a night. Associated Symptoms: Reports vomiting (Bright red blood); Denies chills and fever(s) Related Data Previous Rx's Medication Instructions Recorded albuterol sulfate 90 mcg/actuation 2 inh inhalation Q6H PRN shortness 05/31/20 aerosol inhaler of breath or wheezing #8.5 grams thiamine mononitrate (vit B1) 100 100 mg PO DAILY 30 days #30 tabs 02/12/24 mg tablet (Vitamin B-1 (mononitrate)) Allergies Allergy/AdvReac Type Severity Reaction Status Date / Time No Known Allergies Allergy Verified 12/16/24 14:06 Review of Systems 2 Const: Denies: fever(s) or chills Card: Denies: chest pain Resp: Denies: dyspnea or productive cough GI: Reports: abdominal pain (RUQ) and vomiting (Bright red blood) Neuro: Denies: headache(s) PFSH ED 2 PFSH: Medical History Psychiatric care Social History Smoking and tobacco/nicotine status: current every day tobacco/nicotine user Alcohol intake: never Substance/Drug Use: never Physical Exam 2 Const: COMMON NORMALS: patient oriented x3 and alert Resp: COMMON NORMALS: normal respiratory effort and clear to auscultation bilaterally AUSCULTATION: clear to auscultation bilaterally Cardio: COMMON NORMALS: regular rate and regular rhythm RATE: regular rate RHYTHM: regular rhythm GI: PALPATION: Yes Tenderness to palpation present (GI) Details: RUQ Neuro: COMMON NORMALS: patient oriented x3 SENSORIUM/ORIENTATION: Yes alert Skin: COMMON NORMALS: no rashes or lesions noted and no petechiae GENERAL SKIN EXAM: no rashes or lesions noted Course 2 Vital Signs: Vital signs: Vital Signs Temperature 98.0 F 12/16/24 14:02 Pulse Rate 84 12/16/24 18:37 Respiratory Rate 16 12/16/24 18:37 Blood Pressure 116/70 12/16/24 18:37 Pulse Oximetry 98 12/16/24 18:37 Oxygen Delivery Me thod Room Air 12/16/24 14:02 MDM - Abdominal Pain Medical Decision Making Patient's labs were ordered and reviewed. Patient's gallbladder labs are consistent with alcoholic enzyme elevation and similar to his previous visits. Patient was given Protonix 80 mg upon arrival. Patient ultrasound shows no acute findings. Patient will be admitted to general surgeon Dr. Hardy for EGD in the morning due to his 2 weeks of bright red blood emesis. Patient was stable upon transfer to the floor. Lab Data 12/16/24 14:29 12/16/24 14:29 Labs/Radiology: Radiology Impressions Gallbladder Ultrasound 12/16/24 16:08 IMPRESSION: 1. Small amount of sludge in the gallbladder. No evidence of acute cholecystitis. 2. Enlarged hyperechoic liver, consistent with steatosis/steatohepatitis. Laboratory Results WBC 9.07 10^3/uL (3.29-11.43) 12/16/24 14:29 RBC 4.51 10^6/uL (3.85-5.65) 12/16/24 14:29 Hgb 14.30 g/dL (11.27-16.99) 12/16/24 14:29 Hct 43.5 % (37-53) 12/16/24 14:29 MCV 96.5 fl (82-101) 12/16/24 14:29 MCH 31.7 pg (27-33) 12/16/24 14:29 MCHC 32.9 g/dL (30-55) 12/16/24 14:29 RDW 14.0 % (12.1-15.1) 12/16/24 14:29 Plt Count 161 10^3/cmm (157-399) 12/16/24 14:29 MPV 11.2 fL (7.4-10.4) H 12/16/24 14:29 Neut % (Auto) 77.2 % 12/16/24 14:29 Lymph % (Auto) 14.2 % 12/16/24 14:29 [place] % (Auto) 7.7 % 12/16/24 14:29 Eos % (Auto) 0.3 % 12/16/24 14:29 Baso % (Auto) 0.4 % 12/16/24 14:29 Neut # (Auto) 6.99 10^3/uL (1.8-7.7) 12/16/24 14: Lymph # (Auto) 1.3 10^3/uL (0.8-4.8) 12/16/24 14:29 [place] # (Auto) 0.7 10^3/uL (0.2-0.9) 12/16/24 14: Eos # (Auto) 0.0 10^3/uL (0.0-0.8) 12/16/24 14: Baso # (Auto) 0.0 10^3/uL (0.0-0.1) 12/16/24 14: Nucleated RBC % (auto) 0 % 12/16/24 14: Nucleated RBCs # 0.0 /100WBC 12/16/24 14: PT 15.50 SECONDS (12.1-14.9) H 12/16/24 14:29 INR 1.15 (0.8-1.2) 12/16/24 14: APTT 36.6 SECONDS (23.9-36.7) 12/16/24 14:29 Sodium 136 mmol/L (136-145) 12/16/24 14:29 Potassium 3.3 mmol/L (3.5-5.1) L 12/16/24 14:29 Chloride 97 mmol/L (98-107) L 12/16/24 14: Carbon Dioxide 23 mmol/L (22-29) 12/16/24 14:29 Anion Gap 19.3 (5-19) H 12/16/24 14:29 BUN 5 mg/dL (6-20) L 12/16/24 14:29 Creatinine 0.7 mg/dL (0.7-1.2) 12/16/24 14:29 GFR Calculation 130.7 mL/min (90-130) H 12/16/24 14:29 Glucose 117 mg/dL (65-115) H 12/16/24 14:29 Calculated Osmolality 280 mOsm/kg (285-295) L 12/16/24 14:29 Calcium 8.6 mg/dL (8.5-10.5) 12/16/24 14:29 Total Bilirubin 1.9 mg/dL (0.15-1.2) H 12/16/24 14:29 AST 332 U/L (0-40) H 12/16/24 14:29 ALT 92 U/L (0-41) H 12/16/24 14:29 Alkaline Phosphatase 273 U/L (40-130) H 12/16/24 14:29 Total Protein 7.9 g/dL (6.6-8.7) 12/16/24 14:29 Albumin 3.0 g/dL (3.5-5.2) L 12/16/24 14:29 Globulin 4.9 g/dL (1.3-4.6) H 12/16/24 14:29 Lipase 58 U/L (13-60) 12/16/24 14:29 Blood Type O Positive 12/16/24 14:29 Rho(D) Type Rh positive 12/16/24 14:29 Antibody Screen Negative 12/16/24 14:29 All radiology interpretation(s) finalized by discharge Discharge Plan Discharge Admit Provider: Harvey Hardy Condition: Stable Coding Level of Care Code ED 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
[2024-12-16 14:38] LABS: Basophils % 0.4 %; Eosinophils % 0.3 %; Hematocrit 43.5 % (37-53); Lymphocytes # 1.3 10^3/uL (0.8-4.8); Lymphocytes % 14.2 %; Mean Corpuscular HGB Conc 32.9 g/dL (30-55); Mean Corpuscular Hemoglobin 31.7 pg (27-33); Mean Corpuscular Volume 96.5 fl (82-101); Mean Platelet Volume 11.2 fL (7.4-10.4); Monocytes # 0.7 10^3/uL (0.2-0.9); Monocytes % 7.7 %; Neutrophils # 6.99 10^3/uL (1.8-7.7); Neutrophils % 77.2 %; Nucleated Red Blood Cells % 0 %; Platelet Count 161 10^3/cmm (157-399); Red Blood Count 4.51 10^6/uL (3.85-5.65); White Blood Count 9.07 10^3/uL (3.29-11.43)
[2024-12-16] MEDS: pantoprazole 40 mg SDV 80 MG IVP (14:41)
[2024-12-16 14:50] LABS: INR 1.15 (0.8-1.2)
[2024-12-16 14:51] LABS: Partial Thromboplastin Time 36.6 SECONDS (23.9-36.7)
[2024-12-16 14:54] LABS: Alanine Aminotransferase 92 U/L (0-41); Alkaline Phosphatase 273 U/L (40-130); Anion Gap 19.3 (5-19); Aspartate Amino Transferase 332 U/L (0-40); Blood Urea Nitrogen 5 mg/dL (6-20); Calcium 8.6 mg/dL (8.5-10.5); Carbon Dioxide 23 mmol/L (22-29); Chloride 97 mmol/L (98-107); Creatinine Clr Calc Pharmacy 162.8271; Globulin 4.9 g/dL (1.3-4.6); Glomerular Filtration Rate 130.7 mL/min (90-130); Glucose 117 mg/dL (65-115); Lipase 58 U/L (13-60); Osmolality Calculated 280 mOsm/kg (285-295); Potassium 3.3 mmol/L (3.5-5.1); Sodium 136 mmol/L (136-145); Total Bilirubin 1.9 mg/dL (0.15-1.2); Total Protein 7.9 g/dL (6.6-8.7)
--- NOTE | 2024-12-16 16:08 | USR_ITS ---
PROCEDURE INFORMATION: Exam: US Abdomen; Limited Exam date and time: 12/16/2024 4:31 PM Age: 34 years old Clinical indication: Abdominal pain; Localized; Right upper quadrant (ruq); Additional info: Ruq pain TECHNIQUE: Imaging protocol: Real time ultrasound of the abdomen with image documentation. Limited exam focused on the region of clinical interest. COMPARISON: No relevant prior studies available. FINDINGS: Liver: Enlarged hyperechoic liver measuring 19.4 cm. Gallbladder: Small amount of sludge in the gallbladder no stones. The gallbladder is prominent in length measuring 13.4 cm in length and 2.9 cm diameter. Normal wall thickness 2 mm. Pancreas: Obscured by bowel gas. Intraperitoneal space: No ascites. US/US gall bladder [id number] IMPRESSION: 1. Small amount of sludge in the gallbladder. No evidence of acute cholecystitis. 2. Enlarged hyperechoic liver, consistent with steatosis/steatohepatitis.
[2024-12-16] MEDS: sodium chloride 0.9% 1,000 ML 100 ML IV (16:45)
[2024-12-16] MEDS: sucralfate 1 gm/10 mL Oral Liq UDC PO (16:45)
[2024-12-16] MEDS: pantoprazole 40 mg SDV IVP (18:36)
--- NOTE | 2024-12-16 18:55 | PC.NURSE ---
Assumed care from Gilma HERMOSILLO at shift change.
--- NOTE | 2024-12-16 20:11 | PC.NURSE ---
Report called to Barb HERMOSILLO on med-surg. All questions and concerns were addressed at time of report.
[2024-12-16] MEDS: thiamine 100 mg/mL 2mL SDV IM (22:03)
[2024-12-16] MEDS: HYDROmorphone 1 mg/mL INJ 1 mL IVP (22:03)
[2024-12-17] VITALS (13 sets, daily range): BP systolic 108–150; BP diastolic 66–100; PULSE 78–112; RESP 15–17; TEMP 36.3–36.7; O2SAT 94–98
[2024-12-17] MEDS: sodium chloride 0.9% 1,000 ML 100 ML IV ×3 (04:56→23:39)
--- NOTE | 2024-12-17 07:43 | PC.NURSE ---
pt to gi at approx. 0730
--- NOTE | 2024-12-17 07:56 | P.HP_ITS ---
Providers/Chief Complaint 2 Admitting Physician: Harvey Hardy DO Chief Complaint: pain right side rib area History of Present Illness Chris García is a 34 year old male who presented to the hospital with hematemesis and right upper quadrant abdominal pain. He reports that he has been vomiting blood for the past week. Palpation makes his pain worse. Nothing seems to make his pain better. His pain does not radiate. Gallbladder ultrasound showed biliary sludge and an enlarged hypoechoic liver consistent with steatohepatitis. Patient reports he is a heavy drinker. Review of Systems 2 General: Reports: 10 or more systems reviewed and unremarkable except in HPI and below Medications/Allergies Home Medications Medication Instructions Recorded Confirmed Last Taken Type albuterol sulfate 90 mcg/actuation 2 inh inhalation Q6H PRN shortness 05/31/20 12/16/24 Unknown Rx aerosol inhaler of breath or wheezing #8.5 grams thiamine mononitrate (vit B1) 100 100 mg PO DAILY 30 days #30 tabs 02/12/24 12/16/24 Unknown Rx mg tablet (Vitamin B-1 (mononitrate)) Allergies Allergy/AdvReac Type Severity Reaction Status Date / Time No Known Allergies Allergy Verified 12/16/24 14:06 PFSH Acute 2 PFSH: Medical History Psychiatric care Social History Smoking and tobacco/nicotine status: current every day tobacco/nicotine user Alcohol intake: never Substance/Drug Use: never Vitals/I&O/Wt Last Vital Signs Temp 97.8 F 12/17/24 07:29 Pulse 83 12/17/24 07:29 Resp 16 12/17/24 07:29 BP 121/85 12/17/24 07:29 Pulse Ox 95 12/17/24 07:29 O2 Del Method Room Air 12/17/24 07:29 12/16/24 12/17/24 12/17/24 22:59 06:59 14:59 Intake Total 250 / 250 1000 / 1250 Balance 250 / 250 1000 / 1250 Weight last 48 hrs Weight 187 lb 1.6 oz Weight 187 lb 6 oz Weight 185 lb Physical Exam 2 Narrative: General : Patient is well developed , no acute distress, oriented x3 Head : Normal cephalic, a-traumatic. Ears : Pinnae and external canal are normal. Hearing is normal. Eyes : PERRLA, Sclera and injection are normal. No conjunctival discharge. Nose : Mucous membranes are without erythema. Throat : buccal mucosa is normal, gums are without significant recession or hypertrophy. Lungs : Equal chest rise bilaterally, no use of accessory muscles, trachea is midline. Cor : Rate and rhythm are normal. Abdomen : Soft, ND, mild right upper quadrant tenderness, enlarged palpable liver, no g/r/m Extremities : No edema, no cyanosis or clubbing, dorsalis pedis pulses are present bilaterally, non-tender to palpation of calves. Upper extremities are normal bilaterally. Back : non-tender to palpation, no CVA tenderness. Neuro : CN II - XII intact, Upper and lower extremities have equal and full strength Data 12/16/24 14:29 12/16/24 14:29 A&P Assessment and plan (1) Hematemesis: (2) Right upper quadrant pain: (3) Hyperbilirubinemia: Plan Pantoprazole every 12 Sucralfate every 6 CIWA protocol EGD The risks and benefits of the procedure, including bleeding, infection, intestinal perforation requiring surgery, missed lesion were explained to the patient. The patient is understanding of the risks and wishes to proceed. Attestations 2 Medical Necessity Statement*: Patient requires at least 1 night in the hospital, potentially more, for workup of hyperbilirubinemia and hematemesis Coding Level of Care Code 01361 Diagnoses Hematemesis K92.0 Right upper quadrant pain R10.11 Hyperbilirubinemia E80.6
--- NOTE | 2024-12-17 07:59 | P.ANESASSM_ITS ---
Pre-Anesthetic Assessment Height/Weight: Height 1.75 m Weight 84.867 kg Temp Pulse Resp BP Pulse Ox O2 Del Method 97.8 F 83 16 121/85 95 Room Air 12/17/24 07:29 12/17/24 07:29 12/17/24 07:29 12/17/24 07:29 12/17/24 07:29 12/17/24 07:29 Preop Diagnosis: GI bleed Operation Date: 12/17/24 08:00 Proposed Procedures p EGD(Not Applicable) - Harvey Hardy DO Familial anesthetic complications: none Was Beta Naif taken within 24 hours: N/A Was Clonidine taken within 24 hours: N/A Last intake: Intake Last Liquid Date 12/16/24 Last Liquid Time 23:59 Last Solid Date 12/14/24 Last Solid Time 23:59 Social Alcohol and Tobacco Exam alert and oriented x 3 Airway Submandibular: within normal limits Cervical ROM: within normal limits Mallampati: Class III Dentition: full (chipped) History/ROS No significant history except as noted Pulmonary Asthma Anesthetic Plan ASA status: 3 Anesthesia: Anesthesia Evaluation and General Medications/Allergies Home Medications Medication Instructions Recorded Confirmed Last Taken Type albuterol sulfate 90 mcg/actuation 2 inh inhalation Q6H PRN shortness 05/31/20 12/16/24 Unknown Rx aerosol inhaler of breath or wheezing #8.5 grams thiamine mononitrate (vit B1) 100 100 mg PO DAILY 30 days #30 tabs 02/12/24 12/16/24 Unknown Rx mg tablet (Vitamin B-1 (mononitrate)) Allergies Allergy/AdvReac Type Severity Reaction Status Date / Time No Known Allergies Allergy Verified 12/16/24 14:06 Current Medications Generic Name Dose Route Start Last Admin Trade Name Freq PRN Reason Stop Dose Admin Hydromorphone HCl 1 mg 12/16/24 21:44 12/16/24 22:03 Hydromorphone 1 Mg/Ml Inj 1 Ml IVP 1 mg Q3H PRN Administration MODERATE TO SEVERE PAIN Sodium Chloride 1,000 mls @ 100 mls/hr 12/16/24 16:30 12/17/24 04:56 Sodium Chloride 0.9% IV 100 mls/hr .Q10H SALOMÓN Administration Pantoprazole Sodium 40 mg 12/16/24 18:00 12/16/24 18:36 Pantoprazole 40 Mg Sdv IVP 40 mg BID SALOMÓN Administration PFSH Anesthesia Medical History Psychiatric care Social History Smoking and tobacco/nicotine status: current every day tobacco/nicotine user Alcohol intake: never Substance/Drug Use: never Data Anesthesia 12/16/24 14:29 12/16/24 14:29 Short CBC 12/16/24 Range/Units 14:29 WBC 9.07 (3.29-11.43) 10^3/uL Hgb 14.30 (11.27-16.99) g/dL Hct 43.5 (37-53) % MCV 96.5 (82-101) fl Plt Count 161 (157-399) 10^3/cmm Neut % (Auto) 77.2 % Neut # (Auto) 6.99 (1.8-7.7) 10^3/uL BMP 12/16/24 14:29 Sodium 136 Potassium 3.3 L Chloride 97 L Carbon Dioxide 23 BUN 5 L Creatinine 0.7 Glucose 117 H Calcium 8.6 Liver Function 12/16/24 Range/Units 14:29 Total Bilirubin 1.9 H (0.15-1.2) mg/dL AST 332 H (0-40) U/L ALT 92 H (0-41) U/L Alkaline Phosphatase 273 H (40-130) U/L Albumin 3.0 L (3.5-5.2) g/dL Blood Bank 12/16/24 14:29 Blood Type O Positive Rho(D) Type Rh positive Antibody Screen Negative Coags 12/16/24 14:29 PT 15.50 H INR 1.15 APTT 36.6 Cardiac Studies: 2 No Data to Display
[2024-12-17] MEDS: EPINEPHrine 1 mg/mL INJ XX (08:11)
[2024-12-17] MEDS: pantoprazole 40 mg SDV IVP ×2 (09:12→16:54)
[2024-12-17] MEDS: thiamine 100 mg Tablet PO (09:12)
[2024-12-17] MEDS: folic acid 1 mg Tablet PO (09:13)
[2024-12-17] MEDS: multivitamin therapeutic Tablet 1 TAB PO (09:13)
[2024-12-17] MEDS: potassium chloride premix 100 ML 25 MEQ IV ×2 (09:14→13:03)
--- NOTE | 2024-12-17 10:10 | PC.CHAP ---
Pastoral Care Encounter/Spiritual Assessment Type of Contact [] Declined department clerk visit [] Patient/Family/Request visit [] Outpatient visit [] Follow-up visit [] Physician referral [] Code/Alert [X] Routine visit [] Staff referral [] Actively dying [X] Patient sleeping [] Family support [] [] Out of room [] Palliative care [] [] Receiving care in room [] Pre-surgical visit [] Trauma [] Long length of stay [] ICU visit [] Other: Relational/Emotional Strength [] Patient feels connected with others/family/visitors/staff [] Distress [] Loneliness/isolation [] Abandonment Spirituality of Patient [] Person of Barbara [] Attends Jewish of their Barbara [] Believes in Prayer [] Reads Bible or Jewish materials [] There are Spiritual issues to be addressed Valve Mechanic Interventions [] Prayer [] Active listening [] Non-anxious presence [] Spiritual/emotional support [] Crisis/trauma care [] Spiritual counseling [] Bereavement support [] Provided bereavement packet [] Provided Bible/devotional materials [] Provided toy/stuffed animal, coloring book to patient or family member [] Provided Communion [] Anointing/[place] [] Salvation [] Completed spiritual assessment [] Other: Impact on Illness or Injury [] Angry [] Fearful [] Anxious [] Often cries [X] Exhaustion [] Unable to work [] Unable to attend adventist [] Unable to walk/stand [] Unable to read [] Unable to drive [] Unable to eat/drink [] Unable to sleep [] Unable to be with family [] Patient intubated [] Other: Summary P+1 Time spent with patient Patient Denied prayer. asked for prayer. 15 min
[2024-12-17] MEDS: sucralfate 1 gm/10 mL Oral Liq UDC PO ×2 (16:54→20:19)
[2024-12-17] MEDS: HYDROcodone-acetaminophen 7.5-325 mg Tablet 1 TAB PO (22:32)
[2024-12-17] MEDS: HYDROmorphone 1 mg/mL INJ 1 mL 0.5 MG IVP (23:39)
[2024-12-18] VITALS (7 sets, daily range): BP systolic 121–138; BP diastolic 57–94; PULSE 80–87; RESP 15–17; TEMP 36.5–36.8; O2SAT 95–98
[2024-12-18] MEDS: HYDROcodone-acetaminophen 7.5-325 mg Tablet 1 TAB PO ×2 (03:13→16:23)
[2024-12-18 04:41] LABS: Basophils % 0.3 %; Eosinophils # 0.2 10^3/uL (0.0-0.8); Eosinophils % 2.4 %; Hematocrit 41.3 % (37-53); Lymphocytes # 1.7 10^3/uL (0.8-4.8); Lymphocytes % 26.9 %; Mean Corpuscular Hemoglobin 32.2 pg (27-33); Monocytes # 0.5 10^3/uL (0.2-0.9); Monocytes % 7.6 %; Neutrophils # 3.93 10^3/uL (1.8-7.7); Neutrophils % 62.3 %; Nucleated Red Blood Cells % 0 %; Platelet Count 95 10^3/cmm (157-399); Red Blood Count 3.97 10^6/uL (3.85-5.65); Red Cell Distribution Width 14.2 % (12.1-15.1); White Blood Count 6.31 10^3/uL (3.29-11.43)
[2024-12-18 05:23] LABS: Alanine Aminotransferase 62 U/L (0-41); Albumin Level 2.7 g/dL (3.5-5.2); Alkaline Phosphatase 221 U/L (40-130); Anion Gap 14.1 (5-19); Aspartate Amino Transferase 182 U/L (0-40); Blood Urea Nitrogen 4 mg/dL (6-20); Calcium 8.2 mg/dL (8.5-10.5); Carbon Dioxide 22 mmol/L (22-29); Chloride 101 mmol/L (98-107); Globulin 4.3 g/dL (1.3-4.6); Glomerular Filtration Rate 192.7 mL/min (90-130); Glucose 76 mg/dL (65-115); Osmolality Calculated 272 mOsm/kg (285-295); Potassium 4.1 mmol/L (3.5-5.1); Sodium 133 mmol/L (136-145); Total Bilirubin 2.6 mg/dL (0.15-1.2)
[2024-12-18] MEDS: sucralfate 1 gm/10 mL Oral Liq UDC PO ×4 (06:27→20:06)
[2024-12-18] MEDS: folic acid 1 mg Tablet PO (10:55)
[2024-12-18] MEDS: pantoprazole 40 mg SDV IVP ×2 (10:55→16:23)
[2024-12-18] MEDS: thiamine 100 mg Tablet PO (10:55)
[2024-12-18] MEDS: multivitamin therapeutic Tablet 1 TAB PO (10:55)
[2024-12-18] MEDS: sodium chloride 0.9% 1,000 ML 100 ML IV ×2 (10:56→20:43)
--- NOTE | 2024-12-18 12:57 | P.PN_ITS ---
Subjective 2 Subjective: Patient seen and examined. He reports that he is still having right upper quadrant abdominal pain. Denies any nausea or vomiting Vitals/I&O/Wt Last Vital Signs Temp 98.1 F 12/18/24 12:03 Pulse 82 12/18/24 12:03 Resp 16 12/18/24 12:03 BP 121/71 12/18/24 12:03 Pulse Ox 96 12/18/24 12:03 O2 Del Method Room Air 12/18/24 12:03 12/17/24 12/18/24 12/18/24 22:59 06:59 14:59 Intake Total 220 / 1119.196 7676 / 2368.750 1360 / 1360 Output Total 200 / 200 Balance 220 / 3541.913 2663 / 2368.750 1160 / 1160 Weight last 48 hrs Weight 185 lb 1.6 oz Weight 187 lb 1.6 oz Weight 187 lb 6 oz Weight 185 lb Physical Exam 2 Narrative: General: No acute distress, awake alert and oriented x 3 Abdomen: Soft, distended, tender to palpation right upper quadrant, no guarding rebound or masses Data 12/18/24 03:05 12/18/24 03:05 A&P Assessment and plan (1) Hematemesis: (2) Esophagitis: (3) Gastritis: (4) Hyperbilirubinemia: (5) Right upper quadrant pain: Plan Continue Protonix and sucralfate His bilirubin continues to go up. I will repeat it in the morning. If the bilirubin is not coming down, I will order an MRCP Regular diet N.p.o. after midnight Attestations 2 Medical Necessity Statement*: Patient requires at least 1 more night in the hospital as his bilirubin continues to climb. He may need an MRCP in the morning if it does not start to come down Coding Level of Care Code 97600 Diagnoses Hematemesis K92.0 Esophagitis K20.90 Gastritis K29.70 Hyperbilirubinemia E80.6 Right upper quadrant pain R10.11
[2024-12-18] MEDS: nicotine 4 mg lozenge MUCOUS MEM (16:23)
[2024-12-18] MEDS: HYDROmorphone 1 mg/mL INJ 1 mL 0.5 MG IVP (20:06)
[2024-12-19 00:07] VITALS: BP 146/81; PULSE 100; RESP 18; TEMP 36.6; O2SAT 97
[2024-12-19 03:54] LABS: Basophils % 0.3 %; Eosinophils # 0.1 10^3/uL (0.0-0.8); Eosinophils % 2.2 %; Hematocrit 37.6 % (37-53); Lymphocytes # 1.1 10^3/uL (0.8-4.8); Lymphocytes % 18.9 %; Mean Corpuscular HGB Conc 31.9 g/dL (30-55); Mean Corpuscular Hemoglobin 32.1 pg (27-33); Mean Corpuscular Volume 100.5 fl (82-101); Mean Platelet Volume 12.5 fL (7.4-10.4); Monocytes # 0.5 10^3/uL (0.2-0.9); Monocytes % 7.7 %; Neutrophils # 4.21 10^3/uL (1.8-7.7); Neutrophils % 70.6 %; Nucleated Red Blood Cells % 0 %; Platelet Count 80 10^3/cmm (157-399); Red Blood Count 3.74 10^6/uL (3.85-5.65); Red Cell Distribution Width 14.1 % (12.1-15.1); White Blood Count 5.97 10^3/uL (3.29-11.43)
[2024-12-19 04:22] LABS: Alanine Aminotransferase 53 U/L (0-41); Albumin Level 2.7 g/dL (3.5-5.2); Alkaline Phosphatase 203 U/L (40-130); Anion Gap 13.6 (5-19); Aspartate Amino Transferase 157 U/L (0-40); Blood Urea Nitrogen 3 mg/dL (6-20); Carbon Dioxide 23 mmol/L (22-29); Chloride 100 mmol/L (98-107); Globulin 3.7 g/dL (1.3-4.6); Glomerular Filtration Rate 192.7 mL/min (90-130); Glucose 98 mg/dL (65-115); Osmolality Calculated 273 mOsm/kg (285-295); Potassium 3.6 mmol/L (3.5-5.1); Sodium 133 mmol/L (136-145); Total Bilirubin 1.8 mg/dL (0.15-1.2); Total Protein 6.4 g/dL (6.6-8.7)
[2024-12-19 04:27] VITALS: BP 137/83; PULSE 98; RESP 19; TEMP 36.8; O2SAT 96
[2024-12-19] MEDS: sodium chloride 0.9% 1,000 ML 100 ML IV (07:03)
[2024-12-19 07:52] VITALS: BP 136/79; PULSE 84; RESP 17; TEMP 36.8; O2SAT 96
[2024-12-19] MEDS: thiamine 100 mg Tablet PO (09:32)
[2024-12-19] MEDS: folic acid 1 mg Tablet PO (09:32)
[2024-12-19] MEDS: HYDROcodone-acetaminophen 7.5-325 mg Tablet 1 TAB PO ×3 (09:32→18:29)
[2024-12-19] MEDS: multivitamin therapeutic Tablet 1 TAB PO (09:32)
[2024-12-19] MEDS: pantoprazole 40 mg SDV IVP (09:34)
[2024-12-19] MEDS: sucralfate 1 gm/10 mL Oral Liq UDC PO (09:34)
[2024-12-19 11:18] VITALS: BP 119/64; PULSE 75; RESP 17; TEMP 36.7; O2SAT 96
--- NOTE | 2024-12-19 14:26 | P.DS_ITS ---
Discharge Providers Date of Admission: 12/16/24 18:42 Date of Discharge: December 19, 2024 Attending Provider at Admission: Harvey Hardy DO Attending Provider at Discharge: Harvey Hardy DO Diagnoses at Discharge Discharge Diagnosis (1) Hematemesis: Status: Acute (2) Esophagitis: Status: Acute (3) Gastritis: Status: Acute (4) Hyperbilirubinemia: Status: Acute (5) Right upper quadrant pain: Status: Acute Reason for Visit Reason for Visit: pain right side rib area Hospital Course Hospital Course This is a very pleasant 34-year-old gentleman who presented to the hospital with a 1 week history of hematemesis and right upper quadrant abdominal pain. He has a history of alcoholism. He underwent EGD was found to have gastritis and esophagitis with contact bleeding. Biopsies were obtained and bleeding was controlled with injecting epinephrine. Bilirubin elton during that admission and then came down significantly day of discharge. His abdominal pain resolved. He was discharged home in good condition, on a regular diet, with pantoprazole twice daily and sucralfate twice daily Physical Exam Narrative: General : Patient is well developed , no acute distress, oriented x3 Head : Normal cephalic, a-traumatic. Ears : Pinnae and external canal are normal. Hearing is normal. Eyes : PERRLA, Sclera and injection are normal. No conjunctival discharge. Nose : Mucous membranes are without erythema. Throat : buccal mucosa is normal, gums are without significant recession or hypertrophy. Lungs : Equal chest rise bilaterally, no use of accessory muscles, trachea is midline. Cor : Rate and rhythm are normal. Abdomen : Soft, ND, NT, no g/r/m Extremities : No edema, no cyanosis or clubbing, dorsalis pedis pulses are present bilaterally, non-tender to palpation of calves. Upper extremities are normal bilaterally. Back : non-tender to palpation, no CVA tenderness. Neuro : CN II - XII intact, Upper and lower extremities have equal and full strength Discharge Data Studies Completed and Pending Completed Studies During Hospitalization Category Date Time Status US gall bladder 78699 Stat Ultrasound 12/16/24 16:08 Completed Pending at discharge Category Date Time Status BMP [Basic Metabolic Panel] AM LABS Lab 12/20/24 04:00 Ordered CBC Auto Diff [Complete Blood Count w/Auto] AM LABS Lab 12/20/24 04:00 Ordered Pathology: Surgical [PTH] Routine Pth 12/17/24 08:25 Received Radiology Impressions Gallbladder Ultrasound 12/16/24 16:08 IMPRESSION: 1. Small amount of sludge in the gallbladder. No evidence of acute cholecystitis. 2. Enlarged hyperechoic liver, consistent with steatosis/steatohepatitis. Laboratory Results WBC 5.97 10^3/uL (3.29-11.43) 12/19/24 02:56 RBC 3.74 10^6/uL (3.85-5.65) L 12/19/24 02:56 Hgb 12.00 g/dL (11.27-16.99) 12/19/24 02:56 Hct 37.6 % (37-53) 12/19/24 02:56 MCV 100.5 fl (82-101) 12/19/24 02:56 MCH 32.1 pg (27-33) 12/19/24 02:56 MCHC 31.9 g/dL (30-55) 12/19/24 02:56 RDW 14.1 % (12.1-15.1) 12/19/24 02:56 Plt Count 80 10^3/cmm (157-399) L 12/19/24 02:56 MPV 12.5 fL (7.4-10.4) H 12/19/24 02:56 Neut % (Auto) 70.6 % 12/19/24 02:56 Lymph % (Auto) 18.9 % 12/19/24 02:56 [place] % (Auto) 7.7 % 12/19/24 02:56 Eos % (Auto) 2.2 % 12/19/24 02:56 Baso % (Auto) 0.3 % 12/19/24 02:56 Neut # (Auto) 4.21 10^3/uL (1.8-7.7) 12/19/24 02:56 Lymph # (Auto) 1.1 10^3/uL (0.8-4.8) 12/19/24 02:56 [place] # (Auto) 0.5 10^3/uL (0.2-0.9) 12/19/24 02:56 Eos # (Auto) 0.1 10^3/uL (0.0-0.8) 12/19/24 02:56 Baso # (Auto) 0.0 10^3/uL (0.0-0.1) 12/19/24 02:56 Nucleated RBC % (auto) 0 % 12/19/24 02:56 Nucleated RBCs # 0.0 /100WBC 12/19/24 02:56 PT 15.50 SECONDS (12.1-14.9) H 12/16/24 14:29 INR 1.15 (0.8-1.2) 12/16/24 14:29 APTT 36.6 SECONDS (23.9-36.7) 12/16/24 14:29 Sodium 133 mmol/L (136-145) L 12/19/24 02:56 Potassium 3.6 mmol/L (3.5-5.1) 12/19/24 02:56 Chloride 100 mmol/L (98-107) 12/19/24 02:56 Carbon Dioxide 23 mmol/L (22-29) 12/19/24 02:56 Anion Gap 13.6 (5-19) 12/19/24 02:56 BUN 3 mg/dL (6-20) L 12/19/24 02:56 Creatinine 0.5 mg/dL (0.7-1.2) L 12/19/24 02:56 GFR Calculation 192.7 mL/min (90-130) H 12/19/24 02:56 Glucose 98 mg/dL (65-115) 12/19/24 02:56 Calculated Osmolality 273 mOsm/kg (285-295) L 12/19/24 02:56 Calcium 8.0 mg/dL (8.5-10.5) L 12/19/24 02:56 Total Bilirubin 1.8 mg/dL (0.15-1.2) H 12/19/24 02:56 Direct Bilirubin 1.10 mg/dL (0.00-0.30) H 12/19/24 02:56 AST 157 U/L (0-40) H 12/19/24 02:56 ALT 53 U/L (0-41) H 12/19/24 02:56 Alkaline Phosphatase 203 U/L (40-130) H 12/19/24 02:56 Total Protein 6.4 g/dL (6.6-8.7) L 12/19/24 02:56 Albumin 2.7 g/dL (3.5-5.2) L 12/19/24 02:56 Globulin 3.7 g/dL (1.3-4.6) 12/19/24 02:56 Lipase 58 U/L (13-60) 12/16/24 14:29 Blood Type O Positive 12/16/24 14:29 Rho(D) Type Rh positive 12/16/24 14:29 Antibody Screen Negative 12/16/24 14:29 Procedures Performed EGD with biopsy and control of bleeding Vitals Last Vital Signs Temp 98.1 F 12/19/24 11:18 Pulse 75 12/19/24 11:18 Resp 17 12/19/24 11:18 BP 119/64 12/19/24 11:18 Pulse Ox 96 12/19/24 11:18 O2 Del Method Room Air 12/19/24 11:18 Discharge Plan Discharge Patient Disposition: Home Condition: Stable Prescriptions: New pantoprazole 40 mg tablet,delayed release (DR/EC) 40 mg PO BID 90 Days Qty: 180 0RF sucralfate 1 gram tablet 1 g PO BID 28 Days Qty: 56 0RF Continued albuterol sulfate 90 mcg/actuation HFA aerosol inhaler 2 inh INHALATION Q6H PRN (Reason: shortness of breath or wheezing) Qty: 8.5 0RF thiamine mononitrate (vit B1) [Vitamin B-1 (mononitrate)] 100 mg Tablet 100 mg PO DAILY 30 Days Qty: 30 1RF Discharge Orders: Discharge Order (Routine); Ordered 12/19/24 Ordered By: Harvey Hardy Referrals: Harvey Hardy DO [Physician] - 2 weeks Discharge Diet: Advance as tolerated Discharge Activity: Resume usual activity Patient Instructions: GI Post Discharge Instructions w/ Anesthesia, Opioid Safety Discharge Attestations Time Spent in Discharge Care*: less than 30 min Quality Metrics Clinical Quality Measures [ No reported AMI, CVA or VTE this stay] Coding Level of Care Code Acute Code for Chg Fwd Diagnoses Hematemesis K92.0 Esophagitis K20.90 Gastritis K29.70 Hyperbilirubinemia E80.6 Right upper quadrant pain R10.11
[2024-12-19 15:56] VITALS: BP 129/86; PULSE 91; RESP 16; TEMP 36.7; O2SAT 95
== END 2024-12-19 18:37 | disposition home or self-care (01) | DRG 368 ==
LOC: ER 16:39 → MEDSURG 18:43
PROVIDERS: Admitting Provider Surgery; Emergency Provider Student in an Organized Health Care Education/Training Program; Visit Provider Surgery
PROC: 0DJ08ZZ Inspection of Upper Intestinal Tract, Via Natural or Artificial Opening Endoscopic (ICD-10-PCS; principal; 2024-12-17 08:00)
DX: K20.91 Esophagitis, unspecified with bleeding (principal); I85.01 Esophageal varices with bleeding; K29.71 Gastritis, unspecified, with bleeding; E80.6 Other disorders of bilirubin metabolism; F10.20 Alcohol dependence, uncomplicated; K75.81 Nonalcoholic steatohepatitis (NASH); F17.210 Nicotine dependence, cigarettes, uncomplicated
CPT/HCPCS: 36415; 43239; 43255; 76705; 80048; 80053; 80076; 83690; 85025; 85610; 85730; 86850; 86900; 88305; 88312; 88342; 96372; 96374; 99285; J0171; J0330; J1171; J2371; J2470; J2704; J3010; J3411; J3480; J7030

== ENCOUNTER 2025-01-20 18:45 | Emergency (ER) | payer SELFPAY ==
[2025-01-20 18:48] VITALS: BP 125/66; PULSE 107; RESP 16; TEMP 36.7; O2SAT 96; BMI 26.6
== END 2025-01-20 19:55 | disposition left against medical advice (07) ==
PROVIDERS: Emergency Provider Family Medicine
DX: Z53.21 Procedure and treatment not carried out due to patient leaving prior to being seen by health care provider (principal)
CPT/HCPCS: 99283

== ENCOUNTER 2025-01-22 12:03 | Emergency (ER) | payer SELFPAY ==
[2025-01-22 12:13] VITALS: BP 131/75; PULSE 117; RESP 16; TEMP 36.7; O2SAT 99; BMI 27.3
--- NOTE | 2025-01-22 12:23 | CTR_ITS ---
PROCEDURE INFORMATION: Exam: CT Abdomen And Pelvis With Contrast Exam date and time: 01/22/2025 12:40 PM Age: 34 years old Clinical indication: Abdominal pain; Localized; Right lower quadrant (rlq); Did a 4 min. Delay TECHNIQUE: Imaging protocol: Computed tomography of the abdomen and pelvis with contrast. Axial, coronal and sagittal reformatted images were created and reviewed. Radiation optimization: All CT scans at this facility use at least one of these dose optimization techniques: automated exposure control; mA and/or kV adjustment per patient size (includes targeted exams where dose is matched to clinical indication); or iterative reconstruction. Contrast material: OMNI 350; Contrast volume: 100 ml; Contrast route: INTRAVENOUS (IV); COMPARISON: US gall bladder [id number] 12/16/2024 4:31 PM RADIATION DOSE METRICS: Total DLP (mGy-cm): 1316.93 FINDINGS: Liver: Marked hepatomegaly. Diffuse hepatic steatosis. Gallbladder and biliary ducts: Mild gallbladder distension without radiodense gallstones. Pancreas: Unremarkable. Spleen: Unremarkable. Adrenal glands: Normal. No mass. Kidneys and ureters: No mass. No radiodense calculi. No hydronephrosis. Stomach and bowel: Submucosal fat deposition in the right colon, consistent with chronic inflammation. Diffuse colonic under distension. No convincing bowel wall thickening. No obstruction. No pneumatosis. Appendix: Normal. Intraperitoneal space: Trace nonspecific free pelvic fluid, likely physiologic. No organized fluid collection. No free air. Vasculature: Unremarkable. No aneurysm. Lymph nodes: No pathologically enlarged lymph nodes. Urinary bladder: Unremarkable as visualized. Reproductive: Unremarkable. Bones/joints: No acute osseous abnormality. Soft tissues: Unremarkable. CT/CT abdomen pelvis w con* [id number] IMPRESSION: 1. Markedly enlarged, fatty liver. 2. Additional findings, as above.
[2025-01-22 12:36] LABS: Basophils % 0.4 %; Eosinophils % 0.5 %; Hematocrit 38.4 % (37-53); Lymphocytes # 1.3 10^3/uL (0.8-4.8); Lymphocytes % 14.8 %; Mean Corpuscular HGB Conc 33.9 g/dL (30-55); Mean Corpuscular Hemoglobin 31.1 pg (27-33); Mean Corpuscular Volume 91.9 fl (82-101); Mean Platelet Volume 12.5 fL (7.4-10.4); Monocytes # 0.7 10^3/uL (0.2-0.9); Monocytes % 7.6 %; Neutrophils # 6.49 10^3/uL (1.8-7.7); Neutrophils % 76.2 %; Nucleated Red Blood Cells % 0 %; Platelet Count 82 10^3/cmm (157-399); Red Blood Count 4.18 10^6/uL (3.85-5.65); Red Cell Distribution Width 14.6 % (12.1-15.1); White Blood Count 8.51 10^3/uL (3.29-11.43)
--- NOTE | 2025-01-22 12:41 | W.ED.ABDPA2 ---
HPI - Abdominal Pain General: Chief Complaint: Abdominal Pain Stated Complaint: abd pain, blood in urine Time Seen by Provider: 01/22/25 12:14 History of Present Illness: 34-year-old man with a history of alcoholism in remission for about a month now who presents the emergency room with right lower quadrant abdominal pain. He had noticed his urine was dark and was worried he might have a kidney stone. No nausea or vomiting. No fevers. No dysuria. But he noticed his urine is very dark. Related Data Previous Rx's ?Medication ?Instructions ?Recorded omeprazole 40 mg capsule,delayed 40 mg PO DAILY #30 caps 01/22/25 release potassium chloride 20 mEq 40 meq (2 x 20 mEq) PO DAILY 5 01/22/25 tablet,extended release(part/cryst) days #10 tabs Allergies Allergy/AdvReac Type Severity Reaction Status Date / Time No Known Allergies Allergy Verified 12/16/24 14:06 Review of Systems Narrative: Constitutional symptoms: Negative except as documented in HPI. Skin symptoms: Negative except as documented in HPI. Eye symptoms: Negative except as documented in HPI. ENMT symptoms: Negative except as documented in HPI. Respiratory symptoms: Negative except as documented in HPI. Cardiovascular symptoms: Negative except as documented in HPI. Gastrointestinal symptoms: Negative except as documented in HPI. Genitourinary symptoms: Negative except as documented in HPI. Musculoskeletal symptoms: Negative except as documented in HPI. Neurologic symptoms: Negative except as documented in HPI. Psychiatric symptoms: Negative except as documented in HPI. Endocrine symptoms: Negative except as documented in HPI. [facility] ED PFSH: Medical History Psychiatric care Social History Smoking and tobacco/nicotine status: current every day tobacco/nicotine user Alcohol intake: never Substance/Drug Use: never Physical Exam Narrative: EXAM NARRATIVE: General: Alert, no acute distress. Skin: Warm, dry. Patient appears slightly jaundiced Head: Normocephalic, atraumatic. Neck: Supple, trachea midline. Eye: Extraocular movements are intact. Ears, nose, mouth and throat: mucosa moist. Cardiovascular: Regular, Normal peripheral perfusion. Respiratory: Lungs are clear to auscultation, respirations are non-labored, breath sounds are equal, Symmetrical chest wall expansion. Gastrointestinal: Soft, no palpable tenderness, Non distended Musculoskeletal: Normal ROM, no deformity. Neurological: Alert and oriented, No focal neurological deficit observed. Psychiatric: Cooperative, appropriate mood & affect. Course Vital Signs: Vital signs: Vital Signs Temperature 98.0 F 01/22/25 12:13 Pulse Rate 91 01/22/25 14:12 Respiratory Rate 16 01/22/25 14:32 Blood Pressure 131/75 01/22/25 14:32 Pulse Oximetry 99 01/22/25 14:32 Oxygen Delivery Me thod Room Air 01/22/25 12:13 MDM - Abdominal Pain Medical Decision Making Medical decision making: Differential diagnosis including but not limited to and based on the above HPI, review of systems and physical exam: Ureterolithiasis. Urinary tract infection. Appendicitis. Cholecystis. Musculoskeletal / back pain. Pyelonephritis Orders placed to evaluate differential diagnosis based on the above differential, HPI and physical exam Lab Review: Laboratory results were reviewed and interpreted by myself the emergency room physician. Patient has a stigmata of worsening alcoholic cirrhosis. Platelets are 82 which is stable. He has no anemia at this time. Potassium is 2.6 which is being replaced. Liver enzymes are slightly elevated. Acute hepatitis panel is negative. CT of the abdomen pelvis: Markedly enlarged, fatty liver consistent with cirrhosis. No other acute findings. This was reviewed and interpreted by myself the emergency room physician. I also reviewed the radiology report. I reviewed the patient's medical record. Reexamination: Patient remained stable. No increased work of breathing. No altered mental status. No focal motor deficits. I discussed findings and concern for cirrhosis and need to continue to not drink. Patient expresses understanding. We provided him with a list of primary providers. Consultation: I spoke with Dr. Benoit who is on-call for the hospitalist service we discussed his worsening cirrhosis and he agrees that admission would not benefit this patient at this time. Continued cessation of alcohol and time likely will help. If he gets worse he may need to go see a stock receiver/bed rubber. Assessment and plan: Cirrhosis Abdominal pain Hyperbilirubinemia Hypokalemia Thrombocytopenia Alcohol abuse in remission Dehydration ?Normal saline bolus and replacement potassium in the emergency room. - Discharged home - Discussed plan with patient. Answered any questions. - Evaluation and treatment of this problem were appropriate in the emergency setting. Lab Data 01/22/25 12:27 01/22/25 12:27 Labs/Radiology: Radiology Impressions Abdomen/Pelvis CT 01/22/25 12:23 IMPRESSION: 1. Markedly enlarged, fatty liver. 2. Additional findings, as above. Laboratory Results WBC 8.51 10^3/uL (3.29-11.43) 01/22/25 12:27 RBC 4.18 10^6/uL (3.85-5.65) 01/22/25 12:27 Hgb 13.00 g/dL (11.27-16.99) 01/22/25 12:27 Hct 38.4 % (37-53) 01/22/25 12:27 MCV 91.9 fl (82-101) 01/22/25 12: MCH 31.1 pg (27-33) 01/22/25 12: MCHC 33.9 g/dL (30-55) 01/22/25 12: RDW 14.6 % (12.1-15.1) 01/22/25 12:27 Plt Count 82 10^3/cmm (157-399) L 01/22/25 12: MPV 12.5 fL (7.4-10.4) H 01/22/25 12: Neut % (Auto) 76.2 % 01/22/25 12: Lymph % (Auto) 14.8 % 01/22/25 12: [place] % (Auto) 7.6 % 01/22/25 12: Eos % (Auto) 0.5 % 01/22/25 12: Baso % (Auto) 0.4 % 01/22/25 12:27 Neut # (Auto) 6.49 10^3/uL (1.8-7.7) 01/22/25 12:27 Lymph # (Auto) 1.3 10^3/uL (0.8-4.8) 01/22/25 12:27 [place] # (Auto) 0.7 10^3/uL (0.2-0.9) 01/22/25 12:27 Eos # (Auto) 0.0 10^3/uL (0.0-0.8) 01/22/25 12:27 Baso # (Auto) 0.0 10^3/uL (0.0-0.1) 01/22/25 12:27 Nucleated RBC % (auto) 0 % 01/22/25 12:27 Nucleated RBCs # 0.0 /100WBC 01/22/25 12:27 PT 15.50 SECONDS (12.1-14.9) H 01/22/25 12:27 INR 1.15 (0.8-1.2) 01/22/25 12: APTT 41.2 SECONDS (23.9-36.7) H 01/22/25 12:27 Sodium 128 mmol/L (136-145) L 01/22/25 12:27 Potassium 2.6 mmol/L (3.5-5.1) L* 01/22/25 12:27 Chloride 90 mmol/L (98-107) L 01/22/25 12:27 Carbon Dioxide 23 mmol/L (22-29) 01/22/25 12:27 Anion Gap 17.6 (5-19) 01/22/25 12:27 BUN 4 mg/dL (6-20) L 01/22/25 12:27 Creatinine 0.6 mg/dL (0.7-1.2) L 01/22/25 12:27 GFR Calculation 156.1 mL/min (90-130) H 01/22/25 12:27 Glucose 238 mg/dL (65-115) H 01/22/25 12:27 Calculated Osmolality 271 mOsm/kg (285-295) L 01/22/25 12:27 Calcium 8.4 mg/dL (8.5-10.5) L 01/22/25 12:27 Total Bilirubin 3.7 mg/dL (0.15-1.2) H 01/22/25 12:27 AST 247 U/L (0-40) H 01/22/25 12:27 ALT 58 U/L (0-41) H 01/22/25 12:27 Alkaline Phosphatase 294 U/L (40-130) H 01/22/25 12:27 C-Reactive Protein 15.3 mg/L (0.0-4.9) H 01/22/25 12:27 Total Protein 8.3 g/dL (6.6-8.7) 01/22/25 12:27 Albumin 2.8 g/dL (3.5-5.2) L 01/22/25 12:27 Globulin 5.5 g/dL (1.3-4.6) H 01/22/25 12:27 Urine Color Dark yellow (Yellow) A 01/22/25 14:35 Urine Appearance Clear (CLEAR) 01/22/25 14:35 Urine pH 7.0 (5-7) 01/22/25 14:35 Ur Specific [place] >= 1.099 (1.005-1.030) H 01/22/25 14:35 Urine Protein 1+ (Negative) A 01/22/25 14:35 Urine Glucose (UA) Negative (Normal) 01/22/25 14:35 Urine Ketones Negative (Negative) 01/22/25 14:35 Urine Blood Negative (Negative) 01/22/25 14:35 Urine Nitrate Positive (Negative) A 01/22/25 14:35 Urine Bilirubin 2+ (Negative) H 01/22/25 14:35 Urine Urobilinogen 1.0 mg/dL (Negative) 01/22/25 14:35 Ur Leukocyte Esterase Negative (Negative) 01/22/25 14:35 Urine RBC 0-4 /hpf (0-2) H 01/22/25 14:35 Urine WBC 0-4 /hpf (0-5) H 01/22/25 14:35 Ur Squamous Epith Cells 0-4 /hpf (0-5) H 01/22/25 14:35 Amorphous Sediment Not Reportable 01/22/25 14:35 Urine Bacteria Trace /hpf (NONE) 01/22/25 14:35 Hepatitis A IgM Ab Non-reactive (Nonreactive) 01/22/25 12:27 Hep Bs Antigen Non-reactive (Nonreactive) 01/22/25 12:27 Hep B Core IgM Ab Non-reactive (Nonreactive) 01/22/25 12:27 Hepatitis C Antibody Non-reactive (Nonreactive) 01/22/25 12:27 All radiology interpretation(s) finalized by discharge Discharge Plan Discharge Patient Disposition: Home Clinical Impression: Alcoholic cirrhosis, Hyperbilirubinemia, Abdominal pain, Dehydration Condition: Stable Prescriptions: New omeprazole 40 mg capsule,delayed release(DR/EC) 40 mg PO DAILY Qty: 30 0RF potassium chloride 20 mEq tablet,ER particles/crystals 40 meq PO DAILY 5 Days Qty: 10 0RF Discharge Orders: Discharge ED (Routine); Ordered 01/22/25 Ordered By: Cynthia L Clancy Discharge Diet: Usual diet Discharge Activity: Increase activity as tolerated Patient Instructions: Abdominal Pain (ED), Opioid Safety, Pain Management Activity Restrictions/Additional Instructions: You have been provided with a list of providers. You need to follow-up with a primary provider as soon as possible to monitor your liver disease. Please refrain from alcohol as this result in worsening liver failure and possibly . Thank you for choosing [facility] for your healthcare needs today. Please realize this is an emergency room and that we are providing you with a medical screening exam and this may not be complete and all inclusive of all the testing and or work up that you may need to determine your ailment or severity of your illness. You have been screened and evaluated and felt safe for discharge. Health conditions do change or evolve sometimes and as such it is important that you follow up with your Primary Doctor to be re checked, 3-5 days is a general good time frame for follow up. You are always welcome to return to the ED for re assessment if your symptoms are worsening or you have new concerns Print Language: Somali Coding Level of Care Code ED Tin Flopper for Kieran Lazaro
[2025-01-22 12:50] LABS: Anion Gap 17.6 (5-19); Carbon Dioxide 23 mmol/L (22-29); Total Protein 8.3 g/dL (6.6-8.7)
[2025-01-22] MEDS: ondansetron 2 mg/ML SDV 2 mL 4 MG IVP (12:51)
[2025-01-22] MEDS: ketorolac 30 mg/mL INJ IVP (12:52)
[2025-01-22] MEDS: iohexol 350 mg/mL 500 mL Btl (per mL) IV (12:52)
[2025-01-22 12:54] LABS: Alanine Aminotransferase 58 U/L (0-41); Albumin Level 2.8 g/dL (3.5-5.2); Alkaline Phosphatase 294 U/L (40-130); Aspartate Amino Transferase 247 U/L (0-40); Blood Urea Nitrogen 4 mg/dL (6-20); C Reactive Protein 15.3 mg/L (0.0-4.9); Calcium 8.4 mg/dL (8.5-10.5); Chloride 90 mmol/L (98-107); Globulin 5.5 g/dL (1.3-4.6); Glomerular Filtration Rate 156.1 mL/min (90-130); Glucose 238 mg/dL (65-115); Osmolality Calculated 271 mOsm/kg (285-295); Sodium 128 mmol/L (136-145); Total Bilirubin 3.7 mg/dL (0.15-1.2)
[2025-01-22 12:57] LABS: Potassium 2.6 mmol/L (3.5-5.1)
[2025-01-22 13:22] LABS: INR 1.15 (0.8-1.2)
[2025-01-22 13:33] LABS: Partial Thromboplastin Time 41.2 SECONDS (23.9-36.7)
[2025-01-22 13:44] LABS: Hepatitis A Antibody IgM Non-Reactive (Nonreactive); Hepatitis B Core IgM Non-Reactive (Nonreactive); Hepatitis B Surface Antigen Non-Reactive (Nonreactive); Hepatitis C Virus Antibody Non-Reactive (Nonreactive)
[2025-01-22] MEDS: potassium chloride premix 100 ML 25 MEQ IV (14:04)
[2025-01-22 14:12] VITALS: BP 131/75; PULSE 91; RESP 18; O2SAT 95
[2025-01-22 14:32] VITALS: BP 131/75; RESP 16; O2SAT 99
[2025-01-22 14:45] LABS: Bilirubin Urine 2+ (Negative); Blood Urine Negative (Negative); Glucose Urine UA Negative (Normal); Ketones Urine Negative (Negative); Leukocyte Esterase Urine Negative (Negative); Nitrate Urine Positive (Negative); Protein Urine 1+ (Negative); Urine Appearance Clear (CLEAR); Urine Color Dark Yellow (Yellow)
[2025-01-22 14:49] LABS: Specific Gravity, Urine >= 1.099 (1.005-1.030)
[2025-01-22 14:57] LABS: Bacteria Urine TRACE /hpf; RBC Urine 0-4 /hpf (0-2); Squamous Epithelial Cell Urine 0-4 /hpf (0-5); WBC Urine 0-4 /hpf (0-5)
[2025-01-22] MEDS: potassium chloride oral liq 20 mEq/15 mL UDC 40 MEQ PO (15:28)
[2025-01-22] MEDS: sodium chloride 0.9% 1,000 ML 999 ML IV (15:28)
[2025-01-22 15:58] VITALS: BP 117/70; O2SAT 100
[2025-01-22 16:07] VITALS: BP 127/86; O2SAT 92
[2025-01-22 16:44] VITALS: BP 123/75; PULSE 93; RESP 18; O2SAT 99
== END 2025-01-22 16:45 | disposition home or self-care (01) ==
PROVIDERS: Emergency Provider Emergency Medicine
DX: K70.30 Alcoholic cirrhosis of liver without ascites (principal); E80.6 Other disorders of bilirubin metabolism; R10.31 Right lower quadrant pain; E86.0 Dehydration; Z72.0 Tobacco use
CPT/HCPCS: 36415; 74177; 80053; 80074; 81001; 85025; 85610; 85730; 86140; 96365; 96375; 99285; J1885; J2405; J3480; J7030

== ENCOUNTER 2025-01-30 13:26 | Inpatient (IN) | payer SELFPAY ==
[2025-01-30] VITALS (14 sets, daily range): BP systolic 112–132; BP diastolic 72–82; PULSE 90–109; RESP 15–31; TEMP 36.6; O2SAT 92–100; BMI 27.3; BMI 26.9
[2025-01-30 14:39] LABS: Basophils % 0.3 %; Eosinophils # 0.1 10^3/uL (0.0-0.8); Eosinophils % 0.5 %; Hematocrit 36.7 % (37-53); Lymphocytes # 1.3 10^3/uL (0.8-4.8); Lymphocytes % 10.5 %; Mean Corpuscular HGB Conc 35.1 g/dL (30-55); Mean Corpuscular Hemoglobin 32.2 pg (27-33); Mean Corpuscular Volume 91.5 fl (82-101); Mean Platelet Volume 12.5 fL (7.4-10.4); Monocytes # 1.5 10^3/uL (0.2-0.9); Monocytes % 12.4 %; Neutrophils # 9.02 10^3/uL (1.8-7.7); Neutrophils % 75.8 %; Nucleated Red Blood Cells % 0 %; Platelet Count 125 10^3/cmm (157-399); Red Blood Count 4.01 10^6/uL (3.85-5.65); Red Cell Distribution Width 17.2 % (12.1-15.1); White Blood Count 11.91 10^3/uL (3.29-11.43)
--- NOTE | 2025-01-30 14:41 | CTR_ITS ---
PROCEDURE INFORMATION: Exam: CT Abdomen And Pelvis With Contrast Exam date and time: 01/30/2025 3:35 PM Age: 34 years old Clinical indication: Abdominal pain and other: Vomiting red blood, jaundice; Acute; Abdominal pain with vomiting red blood, jaundice; Additional info: Abd pain TECHNIQUE: Imaging protocol: Computed tomography of the abdomen and pelvis with contrast. Radiation optimization: All CT scans at this facility use at least one of these dose optimization techniques: automated exposure control; mA and/or kV adjustment per patient size (includes targeted exams where dose is matched to clinical indication); or iterative reconstruction. Contrast material: OMNIPAQUE 350; Contrast volume: 100 ml; Contrast route: INTRAVENOUS (IV); COMPARISON: CT abdomen pelvis w con* [id number] 01/22/2025 12:40 PM RADIATION DOSE METRICS: Total DLP (mGy-cm): 961.42 FINDINGS: Lungs: Lung bases are clear. No pleural effusion. Liver: The liver is enlarged and demonstrates severe fatty infiltration. Gallbladder and biliary ducts: Normal. No calcified stones. No ductal dilation. Pancreas: Normal. No ductal dilation. Spleen: Normal. No splenomegaly. Adrenal glands: Normal. No mass. Kidneys and ureters: Normal. No hydronephrosis. Stomach and bowel: Unremarkable. No obstruction. No mucosal thickening. Appendix: No evidence of appendicitis. Intraperitoneal space: Mild ascites is noted. No free air. Vasculature: Unremarkable. No abdominal aortic aneurysm. Lymph nodes: Unremarkable. No enlarged lymph nodes. Urinary bladder: Unremarkable as visualized. Reproductive: Unremarkable as visualized. Bones/joints: Unremarkable. No acute fracture. Soft tissues: Unremarkable. CT/CT abdomen pelvis w con* [id number] IMPRESSION: 1. Enlarged, fatty liver 2. Ascites has developed over the past week
--- NOTE | 2025-01-30 14:47 | ED_ITS ---
HPI - Abdominal Pain 2 General: Chief Complaint: Abdominal Pain Stated Complaint: throwing up blood, looks a little jaundice Time Seen by Provider: 01/30/25 14:37 Source: patient Mode of arrival: ambulatory Limitations: no limitations History of Present Illness: 34-year-old male with a history of alcoh olism states he has had a history of hematemesis in the past he had an EGD done a month ago states he had some cauterization. He states that he started to have some hematemesis again today states he had 2 episodes of bright red blood. He states he is also been having some jaundice of his skin. He denies any severe abdominal pain denies any fever Associated Symptoms: Reports hematemesis, nausea and vomiting; Denies chills, diarrhea, dysuria and fever(s) Related Data Previous Rx's ?Medication ?Instructions ?Recorded omeprazole 40 mg capsule,delayed 40 mg PO DAILY #30 ca ps 01/22/25 release Allergies Allergy/AdvReac Type Severity Reaction Status Date / Time No Known Allergies Allergy Verified 01/30/25 13:59 Review of Systems 2 Const: Denies: fever(s), chills, body aches or change in appetite ENMT: Denies: throat pain or dental pain Card: Denies: chest pain Resp: Denies: dyspnea GI: Reports: nausea, vomiting and hematemesis; Denies: abdominal pain or diarrhea : Denies: dysuria Musc: Denies: neck pain or back pain Skin/Breast: Denies: rash Neuro: Denies: headache(s) PFSH ED 2 PFSH: Medical History Psychiatric care Social History Smoking and tobacco/nicotine status: current every day tobacco/nicotine user Alcohol intake: never Substance/Drug Use: never Physical Exam 2 Const: COMMON NORMALS: no acute distress, patient oriented x3 and healthy appearing HENMT: COMMON NORMALS: normocephalic and atraumatic HEAD & SCALP: n ormocephalic and atraumatic Eye: COMMON NORMALS: conjunctivae normal CONJUNCTIVA: Yes conjunctivae normal Neck/C-Spine: COMMON NORMALS: full ROM and supple Chest: COMMONS NORMALS: normal inspection of the chest Resp: COMMON NORMALS: normal respiratory effort Cardio: COMMON NORMALS: regular rate, regular rhythm and No murmurs present (Cardio) RATE: regular rate RHYTHM: regular rhythm GI: COMMON NORMALS: Normal to inspection, nondistended, normoactive bowel sounds present, Soft to palpation, non-tender and no masses PALPATION: Yes Soft to palpation Extremity: COMMON NORMALS: normal to inspection and full ROM Neuro: COMMON NORMALS: patient oriented x3, moves all extremities and no focal motor deficits Psych: COMMON NORMALS: mental status grossly normal, Normal thought process present and cooperative THOUGHT PROCESS: Normal thought process present Skin: COMMON NORMALS: no rashes or lesions noted and no wounds GENERAL SKIN EXAM: no rashes or lesions noted Course 2 Vital Signs: Vital signs: Vital Signs Temperature 98 F 01/30/25 13:54 Pulse Rate 107 H 01/30/25 16:15 Respiratory Rate 21 H 01/30/25 16:15 Blood Pressure 119/81 01/30/25 16:15 Pulse Oximetry 98 01/30/25 16:15 MDM - Abdominal Pain Medical Decision Making Patient presents here with hematemesis does have a history of gastritis in the past he is an alcoholic has cirrhosis his bilirubin is quite elevated from his baseline hemoglobin and vitals here been stable I did speak to hospitalist along with surgeon will admit at this time Medical Records I reviewed the patient's medical records. Lab Data I reviewed the patient's lab results. 01/30/25 14:21 01/30/25 14:21 Labs/Radiology: Radiology Impressions Abdomen/Pelvis CT 01/30/25 14:41 IMPRESSION: 1. Enlarged, fatty liver 2. Ascites has developed over the past week Laboratory Results WBC 11.91 10^3/uL (3.29-11.43) H 01/30/25 14:21 RBC 4.01 10^6/uL (3.85-5.65) 01/30/25 14:21 Hgb 12.90 g/dL (11.27-16.99) 01/30/25 14:21 Hct 36.7 % (37-53) L 01/30/25 14:21 MCV 91.5 fl (82-101) 01/30/25 14:21 MCH 32.2 pg (27-33) 01/30/25 14: MCHC 35.1 g/dL (30-55) 01/30/25 14:21 RDW 17.2 % (12.1-15.1) H 01/30/25 14:21 Plt Count 125 10^3/cmm (157-399) L 01/30/25 14:21 MPV 12.5 fL (7.4-10.4) H 01/30/25 14:21 Neut % (Auto) 75.8 % 01/30/25 14:21 Lymph % (Auto) 10.5 % 01/30/25 14:21 [place] % (Auto) 12.4 % 01/30/25 14:21 Eos % (Auto) 0.5 % 01/30/25 14:21 Baso % (Auto) 0.3 % 01/30/25 14: Neut # (Auto) 9.02 10^3/uL (1.8-7.7) H 01/30/25 14:21 Lymph # (Auto) 1.3 10^3/uL (0.8-4.8) 01/30/25 14:21 [place] # (Auto) 1.5 10^3/uL (0.2-0.9) H 01/30/25 14:21 Eos # (Auto) 0.1 10^3/uL (0.0-0.8) 01/30/25 14:21 Baso # (Auto) 0.0 10^3/uL (0.0-0.1) 01/30/25 14: Nucleated RBC % (auto) 0 % 01/30/25 14: Nucleated RBCs # 0.0 /100WBC 01/30/25 14:21 PT 16.30 SECONDS (12.1-14.9) H 01/30/25 14:21 INR 1.23 (0.8-1.2) H 01/30/25 14:21 Sodium 128 mmol/L (136-145) L 01/30/25 14:21 Potassium 3.0 mmol/L (3.5-5.1) L 01/30/25 14:21 Chloride 88 mmol/L (98-107) L 01/30/25 14:21 Carbon Dioxide 26 mmol/L (22-29) 01/30/25 14:21 Anion Gap 17.0 (5-19) 01/30/25 14:21 BUN 3 mg/dL (6-20) L 01/30/25 14:21 Creatinine 0.4 mg/dL (0.7-1.2) L 01/30/25 14:21 GFR Calculation 249.3 mL/min (90-130) H 01/30/25 14:21 Glucose 146 mg/dL (65-115) H 01/30/25 14:21 Calculated Osmolality 265 mOsm/kg (285-295) L 01/30/25 14:21 Calcium 8.2 mg/dL (8.5-10.5) L 01/30/25 14:21 Magnesium 1.8 mg/dL (1.7-2.3) 01/30/25 14:21 Total Bilirubin 7.6 mg/dL (0.15-1.2) H* 01/30/25 14:21 AST 229 U/L (0-40) H 01/30/25 14:21 ALT 51 U/L (0-41) H 01/30/25 14:21 Alkaline Phosphatase 336 U/L (40-130) H 01/30/25 14:21 Total Protein 8.4 g/dL (6.6-8.7) 01/30/25 14:21 Albumin 2.6 g/dL (3.5-5.2) L 01/30/25 14:21 Globulin 5.8 g/dL (1.3-4.6) H 01/30/25 14:21 Lipase 75 U/L (13-60) H 01/30/25 14:21 Ethyl Alcohol 163 mg/dL (0-10) H 01/30/25 14:21 All radiology interpretation(s) finalized by discharge Discharge Plan Discharge Patient Disposition: Admitted As Inpatient Clinical Impression: Alcohol intoxication, Cirrhosis, Upper GI bleed Condition: Stable Prescriptions: No Action omeprazole 40 mg capsule,delayed release(DR/EC) 40 mg PO DAILY Qty: 30 0RF Print Language: Macanese Coding Level of Care Code ED Furnace Firer for Kieran Lazaro
[2025-01-30 14:54] LABS: INR 1.23 (0.8-1.2)
[2025-01-30] MEDS: pantoprazole 40 mg SDV 80 MG IVP (14:57)
[2025-01-30 14:58] LABS: Alanine Aminotransferase 51 U/L (0-41); Albumin Level 2.6 g/dL (3.5-5.2); Alcohol Level 163 mg/dL (0-10); Alkaline Phosphatase 336 U/L (40-130); Aspartate Amino Transferase 229 U/L (0-40); Blood Urea Nitrogen 3 mg/dL (6-20); Calcium 8.2 mg/dL (8.5-10.5); Carbon Dioxide 26 mmol/L (22-29); Chloride 88 mmol/L (98-107); Creatinine Clr Calc Pharmacy 284.9475; Globulin 5.8 g/dL (1.3-4.6); Glomerular Filtration Rate 249.3 mL/min (90-130); Glucose 146 mg/dL (65-115); Lipase 75 U/L (13-60); Osmolality Calculated 265 mOsm/kg (285-295); Sodium 128 mmol/L (136-145); Total Protein 8.4 g/dL (6.6-8.7)
[2025-01-30 15:06] LABS: Total Bilirubin 7.6 mg/dL (0.15-1.2)
[2025-01-30] MEDS: sodium chloride 0.9% 1,000 ML 999 ML IV (15:23)
[2025-01-30] MEDS: iohexol 350 mg/mL 500 mL Btl (per mL) IV (15:37)
[2025-01-30 16:12] LABS: Magnesium 1.8 mg/dL (1.7-2.3)
--- NOTE | 2025-01-30 16:50 | P.HP_ITS ---
Providers/Chief Complaint 2 Chief Complaint: throwing up blood, looks a little jaundice History of Present Illness 34 year old male alcoholic liver disease presents with hematemesis. The patient was recently admitted from 12/17/2024 to 12/19/2024 for a similar episode of hematemesis. During that admission, an EGD showed grade 1 nonbleeding esophageal varices in the middle third of the esophagus, esophagitis with contact bleeding in the lower third, and gastritis with contact bleeding in the gastric fundus. The duodenum was normal. The patient was discharged on vitamin B1, tramadol, and protonix, but reports only taking the medications for the first week post- discharge. This morning, the patient noted a small amount of bright red blood in their vomitus, approximately 1 teaspoon in volume. They deny any further episodes of hematemesis, melena, or abdominal pain since the initial episode. The patient reports difficulty tolerating solid foods, with emesis of a baked potato last night. They have not had a full meal since 01/24/2025. The patient admits to consuming 1 beer last night, with their last significant alcohol intake being 3 weeks ago. They deny any fevers, chills, chest pain, shortness of breath, or withdrawal symptoms. Pertinent labs include a hemoglobin of 12.9, hematocrit of 36, platelets of 125, INR of 1.23, PT of 16, sodium of 128, potassium of 3.0, total bilirubin of 7.6, AST of 229, ALT of 51, alkaline phosphatase of 336, albumin of 2.6, and ethanol level of 163. Hepatitis panel was negative. CT abdomen on 01/22/2025 showed hepatomegaly and ascites, consistent with recent imaging. Gallbladder ultrasound in November 2024 showed a small amount of sludge, but no evidence of acute cholecystitis. In the emergency department, the patient received 80 mg IV protonix, 1L normal saline. They were placed on an alcohol withdrawal protocol and surgical consultation was requested. Medications/Allergies Home Medications ?Medication ?Instructions ?Recorded ?Confirmed ?Last Taken ?Type omeprazole 40 mg capsule,delayed 40 mg PO DAILY #30 ca ps 01/22/25 01/30/25 01/30/25 Rx release Allergies Allergy/AdvReac Type Severity Reaction Status Date / Time No Known Allergies Allergy Verified 01/30/25 13:59 PFSH Acute 2 PFSH: Medical History Psychiatric care Social History Smoking and tobacco/nicotine status: current every day tobacco/nicotine user Alcohol intake: never Substance/Drug Use: never Vitals/I&O/Wt Last Vital Signs Temp 98 F 01/30/25 13:54 Pulse 107 H 01/30/25 16:15 Resp 21 H 01/30/25 16:15 BP 119/81 01/30/25 16:15 Pulse Ox 98 01/30/25 16:15 Weight last 48 hrs Weight 83.915 kg Physical Exam 2 Narrative: General: Alert and oriented, no acute distress. Lungs: Clear to auscultation, non-labored respiration. Heart: Normal rate, regular rhythm, no murmur. No LE edema. Abdomen: Soft, non-tender, non-distended, normal bowel sounds. Musculoskeletal: No finger cyanosis. Neurologic: No focal weakness. Psychiatric: Cooperative. Data 01/30/25 14:21 01/30/25 14:21 A&P Assessment and plan (1) Upper GI bleed: (2) Cirrhosis: (3) Hyperbilirubinemia: (4) Alcohol intoxication: Qualifiers: Complication of substance-induced condition: uncomplicated Qualified Code(s): F10.920 - Alcohol use, unspecified with intoxication, uncomplicated Plan Hematemesis in the setting of decompensated alcoholic liver disease - 34-year-old with known alcoholic liver disease presenting with hematemesis, possibly secondary esophageal varices and/or gastritis based on prior EGD findings. patient has been having episodes of nausea and vomiting in the past few days which she stated were not bloody. Differential Diagnosis: 1. Bleeding esophageal varices - less likely 2. Erosive esophagitis or gastritis 3. Kathie-Stinson tear Plan: 1. Admit to medicine service for further management and monitoring. 2. Maintain NPO status until evaluated by surgery and cleared to advance diet. 3. Continue IV protonix. 4. Trend hemoglobin and hematocrit every 6 hours. 5. Administer blood products as needed to maintain hemoglobin >7. Decompensated alcoholic liver disease - Patient with known history of alcohol use disorder and prior imaging evidence of hepatomegaly and ascites, now with evidence of hepatic synthetic dysfunction including hypoalbuminemia, coagulopathy, and hyperbilirubinemia - Maddrey's DF score: 26 - MELD score: 8 Plan: 1. Encourage alcohol cessation 2. Consider diuretics for management of ascites if worsening 3. Consult hepatology outpatient follow-up. Electrolyte derangements - Hyponatremia and hypokalemia, likely secondary to poor nutritional intake, alcohol use, and volume shifts in the setting of liver disease Plan: 1. Replete potassium with IV supplementation, goal K >4.0. 2. Encourage oral intake and consider need for nutritional supplementation. 3. Monitor sodium levels and be cautious with overly rapid correction. Alcohol use disorder - Patient with ongoing alcohol use, last drink 1 day prior to admission, with evidence of end-organ damage including alcoholic liver disease. Plan: 1. Initiate CIWA protocol and treat withdrawal symptoms with benzodiazepines as needed. 2. Consider naltrexone or acamprosate for relapse prevention once medically stable, if interested. PDMP PDMP Reviewed: Not Reviewed Attestations 2 Medical Necessity Statement*: Patient noted to have possible upper GI bleed in setting of decompensated liver cirrhosis and worsening hyperbilirubinemia. Anticipate over 2 midnights stay in hospital for evaluation and treatment. Coding Level of Care Code Acute Code for Chg Fwd Diagnoses Upper GI bleed K92.2 Cirrhosis K74.60 Hyperbilirubinemia E80.6 Alcohol intoxication F10.920 Complication of substance-induced condition: uncomplicated
--- NOTE | 2025-01-30 17:04 | P.CONIM_ITS ---
Providers/Reason For Consult 2 Consulting Physician/Specialty*: Dr. Hogue general surgery Reason for Consult*: GI bleed History of Present Illness History of Present Illness Chris García is a 34 year old male history of cirrhosis. Surgery consulted due to concerns for hematemesis. Discussed with patient and he had 10 cc bloody sputum after coughing yesterday. No additional episodes of bleeding. Patient is in acute liver failure and decompensated. Hemodynamically adequate. No evidence of acute GI bleed Medications/Allergies Home Medications ?Medication ?Instructions ?Recorded ?Confirmed ?Last Taken ?Type omeprazole 40 mg capsule,delayed 40 mg PO DAILY #30 ca ps 01/22/25 01/30/25 01/30/25 Rx release Allergies Allergy/AdvReac Type Severity Reaction Status Date / Time No Known Allergies Allergy Verified 01/30/25 13:59 PFSH Acute 2 PFSH: Medical History Psychiatric care Social History Smoking and tobacco/nicotine status: current every day tobacco/nicotine user Alcohol intake: never Substance/Drug Use: never Vitals/I&O/Wt Last Vital Signs Temp 98 F 01/30/25 13:54 Pulse 107 H 01/30/25 16:15 Resp 21 H 01/30/25 16:15 BP 119/81 01/30/25 16:15 Pulse Ox 98 01/30/25 16:15 Weight last 48 hrs Weight 185 lb Physical Exam 2 Narrative: Chest: Unlabored breathing room air. No lymphadenopathy. Heart: Regular rate and rhythm. Abdomen: Soft, nontender, distended. Positive fluid shift no masses or lymphadenopathy. Jaundiced. Data 01/31/25 10:48 01/31/25 09:46 A&P Assessment and plan (1) Upper GI bleed: Plan 34-year-old male in acute liver failure history of alcohol cirrhosis. No evidence of acute GI bleed. Recommend medical treatment of cirrhosis. Deferring scope at this time. Discussed with hospitalist who agreed. PDMP PDMP Reviewed: Not Reviewed Coding Level of Care Code 36331 Diagnoses Upper GI bleed K92.2
[2025-01-30] MEDS: sodium chloride 0.9% 1,000 ML 75 ML IV (17:29)
[2025-01-30 18:48] LABS: Hematocrit 32.1 % (37-53)
[2025-01-30] MEDS: thiamine 100 mg/mL 2mL SDV IM (19:24)
[2025-01-30] MEDS: multivitamin therapeutic Tablet 1 TAB PO (19:24)
[2025-01-30] MEDS: folic acid 1 mg Tablet PO (19:24)
[2025-01-30 22:35] LABS: Hematocrit 32.1 % (37-53)
[2025-01-31] VITALS (7 sets, daily range): BP systolic 109–135; BP diastolic 58–84; PULSE 82–125; RESP 16–18; TEMP 36.6–37.9; O2SAT 93–99; BMI 26.9
[2025-01-31] MEDS: pantoprazole 40 mg SDV IVP ×2 (02:11→14:55)
[2025-01-31 05:29] LABS: Hematocrit 32.9 % (37-53)
[2025-01-31] MEDS: sodium chloride 0.9% 1,000 ML 75 ML IV (06:18)
--- NOTE | 2025-01-31 09:16 | PC.CHAP ---
Pastoral Care Encounter/Spiritual Assessment Type of Contact [] Declined sales representative adding machines visit [] Patient/Family/Request visit [] Outpatient visit [] Follow-up visit [] Physician referral [] Code/Alert [] Routine visit [] Staff referral [] Actively dying [] Patient sleeping [] Family support [] [] Out of room [] Palliative care [] [x] Receiving care in room [] Pre-surgical visit [] Trauma [] Long length of stay [] ICU visit [] Other: Relational/Emotional Strength [] Patient feels connected with others/family/visitors/staff [] Distress [] Loneliness/isolation [] Abandonment Spirituality of Patient [] Person of Barbara [] Attends Jewish of their Barbara [] Believes in Prayer [] Reads Bible or Hindu materials [] There are Spiritual issues to be addressed 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 [] Prayer [] Active listening [] Non-anxious presence [] Spiritual/emotional support [] Crisis/trauma care [] Spiritual counseling [] Bereavement support [] Provided bereavement packet [] Provided Bible/devotional materials [] Provided toy/stuffed animal, coloring book to patient or family member [] Provided Communion [] Anointing/[place] [] Salvation [] Completed spiritual assessment [] Other: Impact on Illness or Injury [] Angry [] Fearful [] Anxious [] Often cries [] Exhaustion [] Unable to work [] Unable to attend tenriism [] Unable to walk/stand [] Unable to read [] Unable to drive [] Unable to eat/drink [] Unable to sleep [] Unable to be with family [] Patient intubated [] Other: Summary Time spent with patient
[2025-01-31 10:12] LABS: Alanine Aminotransferase 44 U/L (0-41); Albumin Level 2.3 g/dL (3.5-5.2); Alkaline Phosphatase 290 U/L (40-130); Anion Gap 13.3 (5-19); Aspartate Amino Transferase 196 U/L (0-40); Blood Urea Nitrogen 3 mg/dL (6-20); Calcium 7.7 mg/dL (8.5-10.5); Carbon Dioxide 25 mmol/L (22-29); Chloride 91 mmol/L (98-107); Globulin 5.2 g/dL (1.3-4.6); Glomerular Filtration Rate 249.3 mL/min (90-130); Glucose 82 mg/dL (65-115); Osmolality Calculated 258 mOsm/kg (285-295); Potassium 3.3 mmol/L (3.5-5.1); Sodium 126 mmol/L (136-145); Total Protein 7.5 g/dL (6.6-8.7)
[2025-01-31 10:18] LABS: Total Bilirubin 9.5 mg/dL (0.15-1.2)
[2025-01-31 10:52] LABS: Hematocrit 35.7 % (37-53)
--- NOTE | 2025-01-31 10:59 | PM.MISC ---
Miscellaneous Note Note: Full consult note to follow. Consulted to evaluate for GIB. Patient had one episode yesterday when he coughed about 10cc of blood tinged sputum. Decompensated liver failure. Not actively bleeding. Will defer scope. Hospitalist agreed.
--- NOTE | 2025-01-31 14:05 | P.PN_ITS ---
Subjective 2 Subjective: 34 year old male alcoholic liver disease presents with hematemesis. The patient was recently admitted from 12/17/2024 to 12/19/2024 for a similar episode of hematemesis. During that admission, an EGD showed grade 1 nonbleeding esophageal varices in the middle third of the esophagus, esophagitis with contact bleeding in the lower third, and gastritis with contact bleeding in the gastric fundus. The duodenum was normal. The patient was discharged on vitamin B1, tramadol, and protonix, but reports only taking the medications for the first week post- discharge.This morning, the patient noted a small amount of bright red blood in their vomitus, approximately 1 teaspoon in volume. They deny any further episodes of hematemesis, melena, or abdominal pain since the initial episode. The patient reports difficulty tolerating solid foods, with emesis of a baked potato last night. They have not had a full meal since 01/24/2025.The patient admits to consuming 1 beer last night, with their last significant alcohol intake being 3 weeks ago. They deny any fevers, chills, chest pain, shortness of breath, or withdrawal symptoms.Pertinent labs include a hemoglobin of 12.9, hematocrit of 36, platelets of 125, INR of 1.23, PT of 16, sodium of 128, potassium of 3.0, total bilirubin of 7.6, AST of 229, ALT of 51, alkaline phosphatase of 336, albumin of 2.6, and ethanol level of 163. Hepatitis panel was negative.CT abdomen on 01/22/2025 showed hepatomegaly and ascites, consistent with recent imaging. Gallbladder ultrasound in November 2024 showed a small amount of sludge, but no evidence of acute cholecystitis. In the emergency department, the patient received 80 mg IV protonix, 1L normal saline. They were placed on an alcohol withdrawal protocol and surgical consultation was requested. Day 2 of hospitalization 01/31->Upon admission to the hospital his hemoglobin remained stable. He did not have any recurrence of hematemesis. He stated he was feeling better however he did note slight increase in distention of his abdomen ascites. He was seen by surgery would not plan to perform any invasive procedures. He was started on clear liquid diet. His CMP on day 2 of hospitalization showed a sodium of 126, potassium of 3.3, chloride of 91, bicarb 25, BUN of 3 and creatinine of 0.4. Glucose of 82. AST had improved from 229-196 and ALT from 51-44. Alkaline phosphatase was 336 and today it was 290. His total bilirubin however worsened from 7.6 to 9.5. He did not have any withdrawal symptoms. Medications: Reviewed: Yes Vitals/I&O/Wt Last Vital Signs Temp 98.4 F 01/31/25 11:55 Pulse 116 H 01/31/25 11:55 Resp 17 01/31/25 11:55 BP 135/84 01/31/25 11:55 Pulse Ox 99 01/31/25 11:55 O2 Del Method Room Air 01/31/25 11:55 01/30/25 01/31/25 01/31/25 22:59 06:59 14:59 Intake Total 1000 / 1000 961.25 / 1961.25 Output Total 400 / 400 Balance 1000 / 1000 561.25 / 1561.25 Weight last 48 hrs Weight 82.781 kg Weight 82.554 kg Weight 82.554 kg Weight 83.915 kg Physical Exam 2 Narrative: General: Alert and oriented, no acute distress. Lungs: Clear to auscultation, non-labored respiration. Heart: Normal rate, regular rhythm, no murmur. No LE edema. Abdomen: Increase abdominal distention - ascietes Musculoskeletal: No finger cyanosis. Neurologic: No focal weakness. Psychiatric: Cooperative. Data 01/31/25 10:48 01/31/25 09:46 A&P Assessment and plan (1) Upper GI bleed: (2) Cirrhosis: (3) Hyperbilirubinemia: (4) Alcohol intoxication: Qualifiers: Complication of substance-induced condition: uncomplicated Qualified Code(s): F10.920 - Alcohol use, unspecified with intoxication, uncomplicated Plan Hematemesis in the setting of decompensated alcoholic liver disease - 34-year-old with known alcoholic liver disease presenting with hematemesis, possibly secondary esophageal varices and/or gastritis based on prior EGD findings. patient has been having episodes of nausea and vomiting in the past few days which she stated were not bloody. Plan: - No recurrance of bloody emesis - Surgery note reviewed - Will continue to monitor hemoglobin daily - Continue protonix 40 mg BID - Will start on CLD and advance as tolerated Decompensated alcoholic liver disease - Patient with known history of alcohol use disorder and prior imaging evidence of hepatomegaly and ascites, now with evidence of hepatic synthetic dysfunction including hypoalbuminemia, coagulopathy, and hyperbilirubinemia - Noted to have increasing total bili today - Maddrey's DF score: 23 - MELD score: 8 Plan: - Will repeat CMP+ PT/INR in am + ammonia - Will need hepatology outpatient - Given current MDF score - low risk 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 - D/c IVF for now - Likely dilautional component in setting of increase fluid retention and liver disease - Check Urine sodium and osmolality - KCl 40 meq PO x 1 today Alcohol use disorder - Patient with ongoing alcohol use, last drink 1 day prior to admission, with evidence of end-organ damage including alcoholic liver disease. Plan: - Continue CIWA protocol - Consider naltrexone or acamprosate for relapse prevention - Thiamine and folate PDMP PDMP Reviewed: Not Reviewed Attestations 2 Medical Necessity Statement*: Patient noted to have possible upper GI bleed in setting of decompensated liver cirrhosis and worsening hyperbilirubinemia. Anticipate over 2 midnights stay in hospital for evaluation and treatment. Coding Level of Care Code Acute Code for Chg Fwd Diagnoses Upper GI bleed K92.2 Cirrhosis K74.60 Hyperbilirubinemia E80.6 Alcohol intoxication F10.920 Complication of substance-induced condition: uncomplicated
[2025-01-31] MEDS: potassium chloride ER 20 mEq Tablet 40 MEQ PO (17:03)
[2025-02-01] VITALS: BP 122/78; PULSE 100; RESP 17; TEMP 36.8; O2SAT 95
--- NOTE | 2025-02-01 00:57 | PC.NURSE ---
patient is refusing to let the nurse pad his rails for seizure precautions, he is stating that he has been here for 3 days and he does not need them
--- NOTE | 2025-02-01 01:51 | PC.NURSE ---
AMA: Pt came to the desk and stated I would like to leave against medical advise and have my IV removed . Asked the pt if anything was wrong and he replied no, just ready to go home . Asked if he had a ride ans he said his was coming to get him. Pt IV was removed and AMA paperwork signed. Physician notified.
[2025-02-01 08:31] VITALS: BP 122/78; PULSE 100; RESP 16; TEMP 36.8; O2SAT 95
[2025-02-06 16:20] LABS: Osmolality Serum 271 mOsm/kg (278-305)
== END 2025-02-01 01:42 | disposition left against medical advice (07) | DRG 433 ==
LOC: ER 17:18 → ER IP 17:33 → MEDSURG 18:40
PROVIDERS: Admitting Provider Hospitalist; Emergency Provider Emergency Medicine; Visit Provider Hospitalist
DX: K70.31 Alcoholic cirrhosis of liver with ascites (principal); D68.4 Acquired coagulation factor deficiency; K92.0 Hematemesis; E87.1 Hypo-osmolality and hyponatremia; F10.129 Alcohol abuse with intoxication, unspecified; Y90.6 Blood alcohol level of 120-199 mg/100 ml; E88.09 Other disorders of plasma-protein metabolism, not elsewhere classified; E87.6 Hypokalemia; F17.210 Nicotine dependence, cigarettes, uncomplicated; Z53.29 Procedure and treatment not carried out because of patient's decision for other reasons
CPT/HCPCS: 36415; 74177; 80053; 80307; 83690; 83735; 83930; 85014; 85018; 85025; 85610; 96372; 96374; 99285; J2470; J3411; J7030; J9999

== ENCOUNTER 2025-02-05 20:48 | Emergency (ER) | payer SELFPAY ==
[2025-02-05 20:53] VITALS: BP 149/85; PULSE 113; RESP 16; TEMP 36.6; O2SAT 95
[2025-02-05 22:28] VITALS: BP 129/86; PULSE 105; O2SAT 91
--- NOTE | 2025-02-05 23:11 | W.ED.ABDPA2 ---
HPI - Abdominal Pain General: Chief Complaint: Abdominal Pain Stated Complaint: abd pain Time Seen by Provider: 02/05/25 22:40 History of Present Illness: Patient presents with abdominal distention and peripheral edema in the context of known cirrhosis. History reveals alcoholic liver disease as the underlying etiology. Patient reports being recently sober, though duration is unclear (stated variously as 1-2 weeks). Patient complains of abdominal pain and pressure, with difficulty urinating. Per accompanying SUPERVISOR PAINTING, patient has had previous ED visits where paracentesis was planned but not performed. Patient reports receiving B1 supplementation and potassium supplementation during previous visits. Patient and caregiver report plans to relocate to [place] tomorrow for continued care. Related Data Previous Rx's ?Medication ?Instructions ?Recorded omeprazole 40 mg capsule,delayed 40 mg PO DAILY #30 caps 01/22/25 release Allergies Allergy/AdvReac Type Severity Reaction Status Date / Time No Known Allergies Allergy Verified 02/05/25 20:58 [facility] ED PFSH: Medical History Psychiatric care Social History Smoking and tobacco/nicotine status: current every day tobacco/nicotine user Alcohol intake: never Substance/Drug Use: never Physical Exam Const: COMMON NORMALS: no acute distress, patient oriented x3, alert and well nourished HENMT: COMMON NORMALS: normocephalic HEAD & SCALP: normocephalic Eye: COMMON NORMALS: Equal, round and reactive pupils present, EOMs intact bilaterally and conjunctivae normal CONJUNCTIVA: Yes conjunctivae normal PUPIL: Yes Equal, round and reactive pupils present Resp: COMMON NORMALS: normal respiratory effort, No retractions, No use of accessory muscles, clear to auscultation bilaterally and percussion normal AUSCULTATION: clear to auscultation bilaterally PERCUSSION: percussion normal GI: COMMON NORMALS: Normal to inspection, nondistended, normoactive bowel sounds present, non-tender and No hepatosplenomegaly present PALPATION: Yes No hepatosplenomegaly present : COMMON NORMALS: Yes no CVA tenderness BLADDER/KIDNEY EXAM: Yes no CVA tenderness Back/Pelvis: COMMON NORMALS: no CVA tenderness Extremity: COMMON NORMALS: normal to inspection, full ROM, capillary refill normal, no joint enlargement, no clubbing, cyanosis or edema, no calf tenderness and no pedal edema Neuro: COMMON NORMALS: patient oriented x3 SENSORIUM/ORIENTATION: Yes alert Skin: COMMON NORMALS: no rashes or lesions noted, turgor normal and no jaundice GENERAL SKIN EXAM: no rashes or lesions noted and turgor normal Course Vital Signs: Vital signs: Vital Signs Temperature 97.9 F 02/05/25 20:53 Pulse Rate 113 H 02/05/25 20:53 Respiratory Rate 16 02/05/25 20:53 Blood Pressure 149/85 02/05/25 20:53 Pulse Oximetry 95 02/05/25 20:53 Oxygen Delivery Me thod Room Air 02/05/25 20:53 MDM - Abdominal Pain Medical Decision Making 1. Ascites and Peripheral Edema secondary to Alcoholic Cirrhosis: - Initiate diuretic therapy with combination of spironolactone and furosemide - Monitor renal function and potassium levels closely - Outpatient paracentesis recommended for therapeutic management 2. Alcoholic Cirrhosis: - Patient reports recent sobriety - Continue alcohol cessation - Recommend hepatology follow-up at new location 3. Disposition: - Prescribe diuretics for immediate symptom management - Patient to establish care in [place] for ongoing management - Advised close monitoring of urinary output and symptoms Patient's labs came back significantly disordered with markedly elevated hyperbilirubinemia and a low sodium. I have recommended admission to the hospital they do not want to stay they want to go to another hospital. Have asked that they sign out AGAINST MEDICAL ADVICE. Lab Data 02/05/25 22:22 Labs/Radiology: Laboratory Results Sodium 121 mmol/L (136-145) L 02/05/25 22:22 Potassium 3.4 mmol/L (3.5-5.1) L 02/05/25 22:22 Chloride 85 mmol/L (98-107) L 02/05/25 22:22 Carbon Dioxide 26 mmol/L (22-29) 02/05/25 22:22 Anion Gap 13.4 (5-19) 02/05/25 22:22 BUN 6 mg/dL (6-20) 02/05/25 22:22 Creatinine 0.5 mg/dL (0.7-1.2) L 02/05/25 22:22 GFR Calculation 192.7 mL/min (90-130) H 02/05/25 22:22 Glucose 105 mg/dL (65-115) 02/05/25 22:22 Calculated Osmolality 250 mOsm/kg (285-295) L 02/05/25 22:22 Calcium 8.0 mg/dL (8.5-10.5) L 02/05/25 22:22 Magnesium 1.8 mg/dL (1.7-2.3) 02/05/25 22:22 Total Bilirubin 10.2 mg/dL (0.15-1.2) H* 02/05/25 22:22 AST 176 U/L (0-40) H 02/05/25 22:22 ALT 47 U/L (0-41) H 02/05/25 22:22 Alkaline Phosphatase 267 U/L (40-130) H 02/05/25 22:22 Total Protein 8.1 g/dL (6.6-8.7) 02/05/25 22:22 Albumin 2.5 g/dL (3.5-5.2) L 02/05/25 22:22 Globulin 5.6 g/dL (1.3-4.6) H 02/05/25 22:22 No radiology studies performed this visit Discharge Plan Discharge Patient Disposition: Left Against Medical Advice Clinical Impression: Hyperbilirubinemia, Cirrhosis, Chronic hyponatremia Condition: Stable Prescriptions: No Action omeprazole 40 mg capsule,delayed release(DR/EC) 40 mg PO DAILY Qty: 30 0RF Discharge Diet: As Directed Discharge Activity: Resume usual activity Activity Restrictions/Additional Instructions: 1. Liberalize salt / sodium intake. 2. Follow up with GI physician JOJO. 3. 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
[2025-02-05 23:28] VITALS: BP 136/81; PULSE 101; O2SAT 93
[2025-02-05 23:29] LABS: Alanine Aminotransferase 47 U/L (0-41); Albumin Level 2.5 g/dL (3.5-5.2); Alkaline Phosphatase 267 U/L (40-130); Anion Gap 13.4 (5-19); Aspartate Amino Transferase 176 U/L (0-40); Blood Urea Nitrogen 6 mg/dL (6-20); Carbon Dioxide 26 mmol/L (22-29); Chloride 85 mmol/L (98-107); Globulin 5.6 g/dL (1.3-4.6); Glomerular Filtration Rate 192.7 mL/min (90-130); Glucose 105 mg/dL (65-115); Magnesium 1.8 mg/dL (1.7-2.3); Osmolality Calculated 250 mOsm/kg (285-295); Potassium 3.4 mmol/L (3.5-5.1); Sodium 121 mmol/L (136-145); Total Protein 8.1 g/dL (6.6-8.7)
[2025-02-05 23:30] LABS: Total Bilirubin 10.2 mg/dL (0.15-1.2)
[2025-02-05 23:58] VITALS: BP 127/84; PULSE 111; O2SAT 94
== END 2025-02-06 00:29 | disposition left against medical advice (07) ==
PROVIDERS: Emergency Provider Family Medicine
DX: E78.00 Pure hypercholesterolemia, unspecified (principal); E87.1 Hypo-osmolality and hyponatremia; Z72.0 Tobacco use
CPT/HCPCS: 36415; 80053; 83735; 99283